=== PATIENT | male | born 1970 | race African-American/Black ===

== ENCOUNTER 2016-12-06 17:11 | Inpatient (IN) | payer OTHER ==
[2016-12-06] MEDS ORDERED: LOPERAMIDE HCL 2 MG CAPSULE PO PRN (17:44)
[2016-12-06] MEDS ORDERED: hydrOXYzine PAMOATE 50 MG CAPSULE (FP) PO PRN (17:44)
[2016-12-06] MEDS ORDERED: P-EPHED 60MG/TRIPROLIDI 2.5MG TABLET PO PRN (17:44)
[2016-12-06] MEDS ORDERED: IBUPROFEN 400 MG TABLET (FP) PO PRN (17:44)
[2016-12-06] MEDS ORDERED: ACETAMINOPHEN 325 MG TABLET (FP) PO PRN (17:44)
[2016-12-06] MEDS ORDERED: NICOTINE POLACRILEX 2 MG GUM BC PRN (17:44)
[2016-12-06] MEDS ORDERED: diazePAM 5 MG TABLET PO ONE (17:44)
[2016-12-06] MEDS ORDERED: MAG HYDROX/AL HYDROX/SIMETH 30 ML UNIT-DOSE CUP PO PRN (17:44)
[2016-12-06] MEDS ORDERED: diphenhydrAMINE HCL 50 MG CAPSULE PO PRN (17:44)
[2016-12-06] MEDS ORDERED: MAGNESIUM HYDROX 2400MG/30ML ORAL SUSPENSION 30 ML CUP PO PRN (17:44)
[2016-12-06] MEDS ORDERED: guaiFENesin/D-METHORPHAN HB 10 ML UNIT-DOSE CUPS PO PRN (17:44)
[2016-12-06] MEDS ORDERED: METHADONE HCL 10 MG TABLET (FOR DETOX USE ONLY) PO ONE ×2 (17:44→23:00)
[2016-12-06] MEDS ORDERED: MENTHOL/PHENOL 1 EACH UD MM PRN (17:44)
[2016-12-06] MEDS ORDERED: MAGNESIUM CITRATE 300 ML BOTTLE PO PRN (17:44)
[2016-12-06 17:50] VITALS: BMI 43.7
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
[2016-12-06] MEDS ORDERED: WARFARIN NA 7.5 MG TABLET (FP) PO SCH (18:00)
[2016-12-06] MEDS: PANTOPRAZOLE 40 MG TABLET (FP) PO SCH (19:06)
[2016-12-06] MEDS: NICOTINE 21 MG/24 HOURS TOPICAL PATCH TD SCH (19:09)
[2016-12-06] MEDS ORDERED: THIAMINE HCL 100 MG TABLET (FP) PO SCH (22:00)
[2016-12-06] MEDS: diazePAM 5 MG TABLET PO SCH (22:50)
[2016-12-06] MEDS: cloNIDine HCL 0.1 MG TABLET PO SCH (22:50)
[2016-12-07] MEDS: diazePAM 5 MG TABLET PO PRN ×3 (00:35→10:38)
[2016-12-07] MEDS ORDERED: METHADONE HCL 10 MG TABLET (FOR DETOX USE ONLY) PO ONE (00:43)
[2016-12-07] MEDS: diazePAM 5 MG TABLET PO SCH (06:27)
[2016-12-07 09:51] LABS: BASOPHIL 0.7 % (0-2.0); EOSINOPHIL 2.5 % (0-4.5); MCH 29.7 pg (25.7-33.7); MCHC 32.6 g/dl (32.0-35.9); MEAN CELL VOLUME 91.2 fl (80-96); MEAN PLT VOLUME 7.8 fl (7.5-11.1); NEUTROPHILS 54.7 % (42.8-82.8); PLATELET COUNT 239 K/MM3 (134-434); RDW 14.5 % (11.9-15.9); WHITE BLOOD COUNT 4.4 K/mm3 (4.0-10.0)
[2016-12-07 09:59] LABS: INR 3.47 (0.82-1.09); PROTHROMBIN TIME (PATIENT) 39.1 SEC (9.98-11.88)
[2016-12-07] MEDS ORDERED: PRENATAL VITAMINS W/ FOLIC ACID TABLET (FP) PO SCH (10:00)
[2016-12-07] MEDS ORDERED: METHADONE HCL 10 MG TABLET (FOR DETOX USE ONLY) PO SCH (10:00)
[2016-12-07 10:20] VITALS: BP 116/76; PULSE 83; TEMP 97.4
[2016-12-07] MEDS: PANTOPRAZOLE 40 MG TABLET (FP) PO SCH (10:38)
[2016-12-07] MEDS: cloNIDine HCL 0.1 MG TABLET PO SCH (10:38)
[2016-12-07] MEDS: NICOTINE 21 MG/24 HOURS TOPICAL PATCH TD SCH (10:39)
--- NOTE | 2016-12-07 10:43 | CONSULT ---
[facility] Psychiatric Consult - Data Date of interview: 12/07/16 Admission source: [facility] Identifying data: Readmission to [facility] for this 46 y/o AA male seeking detox treatment for heroin,cocaine and alcohol dependence.Patient is is single without children,domiciled,unemployed,supported on SSI benefits.This demographic information is extracted from previous records (patient is a hostile ,irritable and marginally cooperative historian). Substance Abuse History: - Smoking Cessation. Smoking history: Current every day smoker. Have you smoked in the past 12 months: Yes. Aproximately how many cigarettes per day: 20. Cigars Per Day: 0. Hx Chewing Tobacco Use: No. Initiated information on smoking cessation: Yes. 'Breaking Loose' booklet given : 12/06/16. - Substance & Tx. History. Hx Alcohol Use: Yes. Hx Substance Use : Yes. Substance Use Type: Alcohol, Cocaine, Heroin. Hx Substance Use Treatment: Yes (Detox). - Substances Abused. Alcohol. Route: Oral. Frequency: Daily. Amount used: Vodka or Cognac 2 pints. Age of first use: 20. Date of Last Use: 12/06/16. Cocaine. Route: Inhalation. Frequency: 3-6 times per week. Amount used: $20.00. Age of first use: 25. Date of Last Use: 12/03/16. Heroin. Route: Inhalation. Frequency: Daily. Amount used: 30 bags. Age of first use: 21. Date of Last Use: 12/06/16. Confirmed by patient. Medical History: History of seizure disorder (withdrawal-related),hypertension, obesity,GERD and tinea versicolor.Noted history of IVC filter placed at [facility] (2009) and DVT in right leg.Information is taken from the medical records due to the patient's reluctance to answer questions. Psychiatric History: " Why do I have to answer these stupid questions ? What does seroquel or SSI or my personal life have to do with all these questions ? ".Mr Gilliam refuses to provide any answer pertinent to his psychiatric history.He only mentions that he takes seroquel 100 mg at bedtime to address insomnia. Physical/Sexual Abuse/Trauma History: No information. Mental Status Exam - Mental Status Exam Alert and Oriented to: Time, Place, Person Cognitive Function: Good Patient Appearance: Unkempt, Disheveled Mood: Angry, Irritable (no apparent reason) Affect: Mood Congruent Patient Behavior: Uncooperative, Belligerent (argumentative), Resitive to Care Speech Pattern: Clear Voice Loudness: Mildly Loud Thought Process: Goal Oriented Thought Disorder: Not Present Hallucinations: Denies Suicidal Ideation: Denies Homicidal Ideation: Denies Insight/Judgement: Poor Sleep: Poorly, Difficulty falling asleep Appetite: Good Gait/Station: Other (noted limp) Psychiatric Findings - Problem List ([place] 1, 2,3) (1) Alcohol dependence with uncomplicated withdrawal Current Visit: Yes Status: Acute (2) Cocaine dependence Current Visit: Yes Status: Acute Qualifiers: Substance use status: uncomplicated Qualified Code(s): F14.20 - Cocaine dependence, uncomplicated (3) Opioid dependence with withdrawal Current Visit: Yes Status: Acute (4) Drug-induced mood disorder Current Visit: Yes Status: Chronic (5) Nicotine dependence Current Visit: Yes Status: Chronic Qualifiers: Nicotine product type: cigarettes Substance use status: uncomplicated Qualified Code(s): F17.210 - Nicotine dependence, cigarettes, uncomplicated (6) Personality disorder, unspecified Current Visit: Yes Status: Chronic (7) DVT (deep venous thrombosis) Current Visit: Yes Status: Chronic Qualifiers: Chronicity: unspecified (8) GERD (gastroesophageal reflux disease) Current Visit: Yes Status: Chronic Qualifiers: Esophagitis presence: without esophagitis Qualified Code(s): K21.9 - Gastro-esophageal reflux disease without esophagitis (9) HTN (hypertension) Current Visit: Yes Status: Chronic Qualifiers: Hypertension type: essential hypertension (10) Obesity Current Visit: Yes Status: Chronic Qualifiers: Obesity type: due to excess calories Obesity severity: morbid Qualified Code(s): E66.01 - Morbid (severe) obesity due to excess calories (11) Tinea versicolor Current Visit: Yes Status: Chronic - Initial Treatment Plan Initial Treatment Plan: Psychoeducation.Detoxification.Seroquel 100 mg po hs at patient's request (not receptive to discussion of side effects/benefits) .Observation.
[2016-12-07 11:11] LABS: ALBUMIN 3.3 g/dl (3.4-5.0); ALK PHOS 67 U/L (45-117); ANION GAP 7 (8-16); BILIRUBIN,TOTAL 0.4 mg/dL (0.2-1.0); CALCIUM 8.7 mg/dL (8.5-10.1); CO2 30 mmol/L (21-32); COCKROFT - GAULT 213.18; CREATININE 0.8 mg/dL (0.7-1.3); GLUCOSE,RANDOM 98 mg/dL (74-106); SGOT/AST 31 U/L (15-37); SGPT/ALT 29 U/L (12-78); TOT PROT 7.3 g/dl (6.4-8.2)
--- NOTE | 2016-12-07 11:45 | EKG ---
Test Reason : Blood Pressure : / mmHG Vent. Rate : 068 BPM Atrial Rate : 068 BPM P-R Int : 146 ms QRS Dur : 092 ms QT Int : 388 ms P-R-T Axes : -14 075 049 degrees QTc Int : 412 ms NORMAL SINUS RHYTHM NORMAL ECG NO PREVIOUS ECGS AVAILABLE Confirmed by CAMILLA MARVIN MD ([id number]) on 12/07/2016 11:45:48 AM Referred By: Confirmed By:CAMILLA MARVIN MD
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
--- NOTE | 2016-12-07 13:40 | DS ---
[facility] Detox Discharge Summary Admission Date: 12/06/16 Discharge Date: 12/07/16 - History Present History: Alcohol Dependence, Cocaine Dependence, Opioid Dependence Pertinent Past History: DVT PE GERD HTN - Physical Exam Results Vital Signs: Vital Signs Temperature 97.4 F L 12/07/16 10:20 Pulse Rate 83 12/07/16 10:20 Respiratory Rate 18 12/07/16 10:20 Blood Pressure 116/76 12/07/16 10:20 O2 Sat by Pulse Oximetry (%) Pertinent Admission Physical Exam Findings: withdrawal sx. Laboratory Last Values WBC 4.4 K/mm3 (4.0-10.0) 12/07/16 07:00 RBC 4.18 M/mm3 (4.00-5.60) 12/07/16 07:00 Hgb 12.4 GM/dL (11.7-16.9) 12/07/16 07:00 Hct 38.1 % (35.4-49) 12/07/16 07:00 MCV 91.2 fl (80-96) 12/07/16 07:00 MCHC 32.6 g/dl (32.0-35.9) 12/07/16 07:00 RDW 14.5 % (11.9-15.9) 12/07/16 07:00 Plt Count 239 K/MM3 (134-434) 12/07/16 07:00 MPV 7.8 fl (7.5-11.1) 12/07/16 07:00 Neutrophils % 54.7 % (42.8-82.8) 12/07/16 07:00 Lymphocytes % 29.8 % (8-40) 12/07/16 07:00 Monocytes % 12.3 % (3.8-10.2) H 12/07/16 07:00 Eosinophils % 2.5 % (0-4.5) 12/07/16 07:00 Basophils % 0.7 % (0-2.0) 12/07/16 07:00 INR 3.47 (0.82-1.09) H D 12/07/16 07:00 Sodium 142 mmol/L (136-145) 12/07/16 07:00 Potassium 4.2 mmol/L (3.5-5.1) 12/07/16 07:00 Chloride 105 mmol/L (98-107) 12/07/16 07:00 Carbon Dioxide 30 mmol/L (21-32) 12/07/16 07:00 Anion Gap 7 (8-16) L 12/07/16 07:00 BUN 19 mg/dL (7-18) H 12/07/16 07:00 Creatinine 0.8 mg/dL (0.7-1.3) 12/07/16 07:00 Creat Clearance w eGFR > 60 (>60) 12/07/16 07:00 Random Glucose 98 mg/dL (74-106) D 12/07/16 07:00 Calcium 8.7 mg/dL (8.5-10.1) 12/07/16 07:00 Total Bilirubin 0.4 mg/dL (0.2-1.0) D 12/07/16 07:00 AST 31 U/L (15-37) D 12/07/16 07:00 ALT 29 U/L (12-78) 12/07/16 07:00 Alkaline Phosphatase 67 U/L (45-117) 12/07/16 07:00 Total Protein 7.3 g/dl (6.4-8.2) 12/07/16 07:00 Albumin 3.3 g/dl (3.4-5.0) L 12/07/16 07:00 RPR Titer Nonreactive (NONREACTIVE) 12/07/16 07:00 labs noted,pt. has INR done weekly at the medical clinic where he gets care. - Medication Discharge Medications: Ambulatory Orders Ammonium Lactate Lotion [Lac-Hydrin 12] 1 applic TP BID PRN #1 bottle 11/27/14 Quetiapine Fumarate [Seroquel -] 100 mg PO HS #30 tablet 05/14/15 Pantoprazole Sodium [Protonix -] 40 mg PO DAILY #30 tablet.ec 05/18/15 Warfarin Na [Coumadin -] 7.5 mg PO HS #30 tablet 05/18/15 Clonidine HCl [Catapres] 0.2 mg PO BID 09/12/15 Zolpidem Tartrate [Ambien] 10 mg PO HS #14 tablet 09/12/15 Gabapentin [Neurontin -] 300 mg PO TID 10/26/15 Quetiapine Fumarate [Seroquel] 100 tab PO HS #30 tablet 10/28/15 Zolpidem Tartrate [Ambien] 10 mg PO HS #14 tablet MDD 10 10/28/15 - Diagnosis (1) Alcohol dependence with uncomplicated withdrawal Current Visit: Yes Status: Acute (2) Cocaine dependence Current Visit: Yes Status: Acute Qualifiers: Substance use status: uncomplicated Qualified Code(s): F14.20 - Cocaine dependence, uncomplicated (3) Opioid dependence with withdrawal Current Visit: Yes Status: Acute (4) DVT (deep venous thrombosis) Current Visit: Yes Status: Chronic Qualifiers: Chronicity: unspecified (5) GERD (gastroesophageal reflux disease) Current Visit: Yes Status: Chronic Qualifiers: Esophagitis presence: without esophagitis Qualified Code(s): K21.9 - Gastro-esophageal reflux disease without esophagitis (6) Obesity Current Visit: Yes Status: Chronic Qualifiers: Obesity type: due to excess calories Obesity severity: morbid Qualified Code(s): E66.01 - Morbid (severe) obesity due to excess calories - AMA Did Patient Leave Against Medical Advice: No
[2016-12-07] MEDS ORDERED: QUEtiapine FUMARATE 100 MG TABLET (FP) PO SCH (22:00)
[2016-12-08] MEDS ORDERED: METHADONE HCL 5 MG TABLET (FOR DETOX USE ONLY) PO SCH (10:00)
[2016-12-08] MEDS ORDERED: diazePAM 5 MG TABLET PO SCH (10:00)
[2016-12-10] MEDS ORDERED: diazePAM 5 MG TABLET PO SCH (10:00)
[2016-12-10] MEDS ORDERED: METHADONE HCL 10 MG TABLET (FOR DETOX USE ONLY) PO SCH (10:00)
[2016-12-11] MEDS ORDERED: METHADONE HCL 5 MG TABLET (FOR DETOX USE ONLY) PO SCH (06:00)
== END 2016-12-07 10:54 | disposition home or self-care (01) | DRG 897 ==
LOC: YASAS 17:11 → Y3N 17:47
PROVIDERS: ADMIT Internal Medicine; ATTEND Internal Medicine
PROC: HZ2ZZZZ Detoxification Services for Substance Abuse Treatment (ICD-10-PCS; principal; 2016-12-07)
DX: F11.23 Opioid dependence with withdrawal (principal); F14.20 Cocaine dependence, uncomplicated; Z68.41 Body mass index [BMI] 40.0-44.9, adult; F10.230 Alcohol dependence with withdrawal, uncomplicated; K21.9 Gastro-esophageal reflux disease without esophagitis; E66.01 Morbid (severe) obesity due to excess calories
CPT/HCPCS: 36415; 80053; 85025; 85610; 86593; 93005; 93010; J0735

== ENCOUNTER 2017-07-05 20:13 | Inpatient (IN) | payer OTHER ==
[2017-07-05 20:32] VITALS: BMI 42.8
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
[2017-07-05] MEDS ORDERED: METHADONE HCL 10 MG TABLET (FOR DETOX USE ONLY) PO ONE ×2 (21:48→23:00)
[2017-07-05] MEDS ORDERED: ACETAMINOPHEN 325 MG TABLET (FP) PO PRN (21:48)
[2017-07-05] MEDS ORDERED: guaiFENesin/D-METHORPHAN HB 10 ML UNIT-DOSE CUPS PO PRN (21:48)
[2017-07-05] MEDS ORDERED: IBUPROFEN 400 MG TABLET (FP) PO PRN (21:48)
[2017-07-05] MEDS ORDERED: MAG HYDROX/AL HYDROX/SIMETH 30 ML UNIT-DOSE CUP PO PRN (21:48)
[2017-07-05] MEDS ORDERED: MENTHOL/PHENOL 1 EACH UD MM PRN (21:48)
[2017-07-05] MEDS ORDERED: P-EPHED 60MG/TRIPROLIDI 2.5MG TABLET PO PRN (21:48)
[2017-07-05] MEDS ORDERED: diazePAM 5 MG TABLET PO ONE (21:48)
[2017-07-05] MEDS ORDERED: MAGNESIUM HYDROX 2400MG/30ML ORAL SUSPENSION 30 ML CUP PO PRN (21:48)
[2017-07-05] MEDS ORDERED: MAGNESIUM CITRATE 300 ML BOTTLE PO PRN (21:48)
[2017-07-05] MEDS ORDERED: LOPERAMIDE HCL 2 MG CAPSULE PO PRN (21:48)
[2017-07-05] MEDS ORDERED: WARFARIN NA 7.5 MG TABLET (FP) PO SCH (22:30)
[2017-07-05] MEDS: THIAMINE HCL 100 MG TABLET (FP) PO SCH (22:42)
[2017-07-05] MEDS: cloNIDine HCL 0.1 MG TABLET PO SCH (22:43)
[2017-07-05 23:02] LABS: URINE APPEARANCE CLEAR; URINE BILIRUBIN NEGATIVE (NEGATIVE); URINE BLOOD NEGATIVE (NEGATIVE); URINE COLOR LTYELLOW; URINE GLUCOSE (UA) NEGATIVE (NEGATIVE); URINE KETONE NEGATIVE (NEGATIVE); URINE LEUK ESTERASE NEGATIVE (NEGATIVE); URINE NITRITE NEGATIVE (NEGATIVE); URINE PROTEIN NEGATIVE (NEGATIVE); URINE UROBILINOGEN NEGATIVE mg/dL (0.2-1.0)
[2017-07-05] MEDS: diazePAM 5 MG TABLET PO SCH (23:57)
[2017-07-06] MEDS ORDERED: METHADONE HCL 10 MG TABLET (FOR DETOX USE ONLY) ONE (00:22)
[2017-07-06] MEDS: diazePAM 5 MG TABLET PO PRN ×3 (02:55→16:57)
[2017-07-06] MEDS: diazePAM 5 MG TABLET PO SCH ×3 (05:40→22:11)
[2017-07-06] MEDS ORDERED: AMMONIUM LACTATE 12% LOTION 225 GM BOTTLE TP PRN (08:57)
--- NOTE | 2017-07-06 09:56 | PN ---
S CIWA - CIWA Score Nausea/Vomitin Muscle Tremors: 3 Anxiety: 3 Agitation: 3 Paroxysmal Sweats: 1-Minimal Palms Moist Orientation: 0-Oriented Tacttile Disturbances: 1-Very Mild Itch/Numbness Auditory Disturbances: 1-Very Mild Visual Disturbances: 0-None Headache: 2-Mild CIWA-Ar Total Score: 17 BHS COWS - Scale Resting Pulse: 1= SD 81-100 Sweatin= Chills/Flushing Restless Observation: 1= Difficult to Sit Still Pupil Size: 1= Pupils >than Normal Bone or Joint Aches: 2= Severe Diffuse Aches Runny Nose/ Eye Tearin= Runny Nose/Eyes GI Upset > 30mins: 2= Nausea/Diarrhea Tremor Observation of Outstretched Hands: 2= Slight Tremor Visible Yawning Observation: 1= 1-2x During Session Anxiety or Irritability: 2=Irritable/Anxious Goose Flesh Skin: 0=Smooth Skin COWS Score: 15 S Progress Note (SOAP) Subjective: ALERT,IRRITABLE,ANXIOUS,INTERRUPTED SLEEP,PAIN IN THE BODY AND BACK,TREMOR Objective: 07/06/17 09:54 Vital Signs Temperature 96.8 F L 07/06/17 05:50 Pulse Rate 82 07/06/17 05:50 Respiratory Rate 18 07/06/17 05:50 Blood Pressure 115/56 07/06/17 05:50 O2 Sat by Pulse Oximetry (%) EKG NSR,NORMAL ECG Laboratory Last Values Urine Color Ltyellow 07/05/17 22:50 Urine Appearance Clear 07/05/17 22:50 Urine pH 6.0 (5.0-8.0) 07/05/17 22:50 Ur Specific [place] 1.015 (1.001-1.035) 07/05/17 22:50 Urine Protein Negative (NEGATIVE) 07/05/17 22:50 Urine Glucose (UA) Negative (NEGATIVE) 07/05/17 22:50 Urine Ketones Negative (NEGATIVE) 07/05/17 22:50 Urine Blood Negative (NEGATIVE) 07/05/17 22:50 Urine Nitrite Negative (NEGATIVE) 07/05/17 22:50 Urine Bilirubin Negative (NEGATIVE) 07/05/17 22:50 Urine Urobilinogen Negative mg/dL (0.2-1.0) 07/05/17 22:50 LABS PENDING Assessment: 07/06/17 09:55 WITHDRAWAL SYMPTOM Plan: CONTINUE DETOX
[2017-07-06] MEDS ORDERED: NICOTINE 14 MG/24 HOURS TOPICAL PATCH TD SCH (10:00)
[2017-07-06] MEDS ORDERED: METHADONE HCL 10 MG TABLET (FOR DETOX USE ONLY) PO SCH (10:00)
[2017-07-06 10:02] LABS: HEMATOCRIT 33.1 % (35.4-49); HEMOGLOBIN 10.7 GM/dL (11.7-16.9); MCH 29.8 pg (25.7-33.7); MCHC 32.3 g/dl (32.0-35.9); MEAN CELL VOLUME 92.3 fl (80-96); MEAN PLT VOLUME 8.1 fl (7.5-11.1); PLATELET COUNT 185 K/MM3 (134-434); RBC 3.59 M/mm3 (4.00-5.60); WHITE BLOOD COUNT 3.8 K/mm3 (4.0-10.0)
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
[2017-07-06 10:13] LABS: CHLORIDE 101 mmol/L (98-107); POTASSIUM 4.3 mmol/L (3.5-5.1); SODIUM 140 mmol/L (136-145)
[2017-07-06] MEDS: cloNIDine HCL 0.1 MG TABLET PO SCH ×2 (10:18→22:11)
[2017-07-06] MEDS: CYCLOBENZAPRINE HCL 10 MG TABLET (FP) PO PRN ×2 (10:18→22:11)
[2017-07-06] MEDS: PRENATAL VITAMINS W/ FOLIC ACID TABLET (FP) PO SCH (10:18)
[2017-07-06 10:19] LABS: INR 3.12 (0.82-1.09); PROTHROMBIN TIME (PATIENT) 35.2 SEC (9.98-11.88)
[2017-07-06] MEDS: NICOTINE 21 MG/24 HOURS TOPICAL PATCH TD SCH (10:19)
[2017-07-06 10:26] LABS: ALK PHOS 52 U/L (45-117); ANION GAP 5 (8-16); BILIRUBIN,TOTAL 0.2 mg/dL (0.2-1.0); BLOOD UREA NITROGEN 21 mg/dL (7-18); CALCIUM 8.2 mg/dL (8.5-10.1); CO2 34 mmol/L (21-32); CREATININE 0.8 mg/dL (0.7-1.3); GLUCOSE,RANDOM 95 mg/dL (74-106); SGOT/AST 37 U/L (15-37); SGPT/ALT 43 U/L (12-78); TOT PROT 6.2 g/dl (6.4-8.2)
--- NOTE | 2017-07-06 17:42 | PN ---
S Progress Note Note: tonight coumadin of 7.5mg on hold. Pt INR is 3.12; INR blood work ordered for tomorrow AM. coumadin ordered for tomorrow night but will hold if INR is still too high.
[2017-07-06] MEDS ORDERED: QUEtiapine FUMARATE 100 MG TABLET (FP) PO SCH (22:00)
[2017-07-06] MEDS: THIAMINE HCL 100 MG TABLET (FP) PO SCH (22:11)
[2017-07-07] MEDS: diazePAM 5 MG TABLET PO PRN ×2 (00:57→06:38)
[2017-07-07] MEDS: CYCLOBENZAPRINE HCL 10 MG TABLET (FP) PO PRN (06:38)
[2017-07-07] MEDS: NICOTINE POLACRILEX 2 MG GUM BUC PRN ×2 (06:38→10:40)
[2017-07-07 09:45] VITALS: BP 136/74; PULSE 103; TEMP 98.2
[2017-07-07 10:00] LABS: INR 2.64 (0.82-1.09); PROTHROMBIN TIME (PATIENT) 29.8 SEC (9.98-11.88)
[2017-07-07] MEDS ORDERED: diazePAM 5 MG TABLET PO SCH (10:00)
[2017-07-07] MEDS ORDERED: METHADONE HCL 5 MG TABLET (FOR DETOX USE ONLY) PO SCH (10:00)
--- NOTE | 2017-07-07 10:12 | PN ---
S CIWA - CIWA Score Nausea/Vomitin Muscle Tremors: 3 Anxiety: 3 Agitation: 2 Paroxysmal Sweats: 1-Minimal Palms Moist Orientation: 0-Oriented Tacttile Disturbances: 1-Very Mild Itch/Numbness Auditory Disturbances: 1-Very Mild Visual Disturbances: 0-None Headache: 2-Mild CIWA-Ar Total Score: 16 BHS COWS - Scale Resting Pulse: 2= [place] 101-120 Sweatin= Chills/Flushing Restless Observation: 3= Extraneous Movement Pupil Size: 1= Pupils >than Normal Bone or Joint Aches: 2= Severe Diffuse Aches Runny Nose/ Eye Tearin= Runny Nose/Eyes GI Upset > 30mins: 2= Nausea/Diarrhea Tremor Observation of Outstretched Hands: 2= Slight Tremor Visible Yawning Observation: 0= None Anxiety or Irritability: 2=Irritable/Anxious Goose Flesh Skin: 0=Smooth Skin COWS Score: 17 S Progress Note (SOAP) Subjective: ALERT,IRRITABLE,ANXIOUS,INTERRUPTED SLEEP,PAIN IN THE BODY AND BACK,TREMOR Objective: 07/07/17 10:11 Vital Signs Temperature 98.2 F 07/07/17 09:44 Pulse Rate 103 H 07/07/17 09:44 Respiratory Rate 18 07/07/17 09:44 Blood Pressure 136/74 07/07/17 09:44 O2 Sat by Pulse Oximetry (%) 07/07/17 10:12 REPEAT INR PENDING Assessment: 07/07/17 10:11 WITHDRAWAL SYMPTOM Plan: CONTINUE DETOX
[2017-07-07] MEDS: cloNIDine HCL 0.1 MG TABLET PO SCH (10:37)
[2017-07-07] MEDS: NICOTINE 21 MG/24 HOURS TOPICAL PATCH TD SCH (10:37)
[2017-07-07] MEDS: PRENATAL VITAMINS W/ FOLIC ACID TABLET (FP) PO SCH (10:37)
--- NOTE | 2017-07-07 10:50 | PN ---
Jodee Progress Note Note: PATIENT DID NOT WANT TO COMPLETE TREATMENT,SEEN BY COUNSELOR,SIGNED RELEASE AMA, Abnormal Lab Results 07/07/17 07:30 PT with INR 29.80 H INR 2.64 H PATIENT WILL FOLLOW UP WITH PMD FOR MEDIACL PROBLEM,HAS ALL MEDICATIONS AT HOME
--- NOTE | 2017-07-07 10:55 | DS ---
[facility] Detox Discharge Summary Admission Date: 07/05/17 Discharge Date: 07/07/17 - History Present History: Alcohol Dependence, Opioid Dependence, Sedative Dependence Additional Comments: PATIENT DID NOT WANT TO COMPLETE TREATMENT,SEEN BY COUNSELOR,SIGNED RELEASE AMA, FOLLOW UP WITH PMR DR Dav SOLIS Pertinent Past History: HISTORY OF DVT RIGHT LEG GERD HYPERTENSION HISTORY OF PULMONARY EMBOLISM ANXIETY DISORDER - Physical Exam Results Vital Signs: Vital Signs Temperature 98.2 F 07/07/17 09:44 Pulse Rate 103 H 07/07/17 09:44 Respiratory Rate 18 07/07/17 09:44 Blood Pressure 136/74 07/07/17 09:44 O2 Sat by Pulse Oximetry (%) Pertinent Admission Physical Exam Findings: WITHDRAWAL SYMPTOM - Medication Discharge Medications: Ambulatory Orders Quetiapine Fumarate [Seroquel -] 100 mg PO HS #30 tablet 05/14/15 Pantoprazole Sodium [Protonix -] 40 mg PO DAILY #30 tablet.ec 05/18/15 Warfarin Na [Coumadin -] 7.5 mg PO HS #30 tablet 05/18/15 Clonidine HCl [Catapres] 0.2 mg PO BID 09/12/15 Zolpidem Tartrate [Ambien] 10 mg PO HS #14 tablet 09/12/15 Gabapentin [Neurontin -] 300 mg PO TID 10/26/15 Quetiapine Fumarate [Seroquel] 100 mg PO HS #30 tablet 07/06/17 - Diagnosis (1) Opioid dependence with withdrawal Current Visit: Yes Status: Acute (2) Alcohol dependence with uncomplicated withdrawal Current Visit: Yes Status: Acute (3) Anticoagulant long-term use Current Visit: Yes Status: Chronic (4) Benzodiazepine dependence Current Visit: Yes Status: Acute (5) DVT (deep venous thrombosis) Current Visit: Yes Status: Chronic Qualifiers: Chronicity: unspecified (6) GERD (gastroesophageal reflux disease) Current Visit: Yes Status: Chronic Qualifiers: Esophagitis presence: without esophagitis Qualified Code(s): K21.9 - Gastro -esophageal reflux disease without esophagitis (7) HTN (hypertension) Current Visit: Yes Status: Chronic Qualifiers: Hypertension type: essential hypertension (8) Nicotine dependence Current Visit: Yes Status: Chronic Qualifiers: Nicotine product type: cigarettes Substance use status: uncomplicated Qualified Code(s): F17.210 - Nicotine dependence, cigarettes, uncomplicated (9) Cocaine dependence Current Visit: Yes Status: Acute Qualifiers: Substance use status: uncomplicated Qualified Code(s): F14.20 - Cocaine dependence, uncomplicated (10) History of pulmonary embolism Current Visit: Yes Status: Acute - AMA Did Patient Leave Against Medical Advice: Yes
--- NOTE | 2017-07-07 13:32 | EKG ---
Test Reason : Blood Pressure : / mmHG Vent. Rate : 084 BPM Atrial Rate : 084 BPM P-R Int : 164 ms QRS Dur : 082 ms QT Int : 350 ms P-R-T Axes : 067 064 038 degrees QTc Int : 413 ms NORMAL SINUS RHYTHM NORMAL ECG WHEN COMPARED WITH ECG OF 06-DEC-2016 18:22, NO SIGNIFICANT CHANGE WAS FOUND Confirmed by THERON ERIC MD ([id number]) on 07/07/2017 1:32:48 PM Referred By: Confirmed By:THERON ERIC MD
[2017-07-07] MEDS ORDERED: WARFARIN NA 7.5 MG TABLET (FP) PO ONE (18:00)
[2017-07-09] MEDS ORDERED: METHADONE HCL 10 MG TABLET (FOR DETOX USE ONLY) PO SCH (10:00)
[2017-07-09] MEDS ORDERED: diazePAM 5 MG TABLET PO SCH (10:00)
[2017-07-10] MEDS ORDERED: METHADONE HCL 5 MG TABLET (FOR DETOX USE ONLY) PO SCH (06:00)
== END 2017-07-07 11:08 | disposition left against medical advice (07) | DRG 894 ==
LOC: YASAS 20:13 → Y6N 21:57
PROVIDERS: ADMIT Internal Medicine; ATTEND Internal Medicine
PROC: HZ2ZZZZ Detoxification Services for Substance Abuse Treatment (ICD-10-PCS; principal; 2017-07-05)
DX: F19.230 Other psychoactive substance dependence with withdrawal, uncomplicated (principal); F14.20 Cocaine dependence, uncomplicated; F31.30 Bipolar disorder, current episode depressed, mild or moderate severity, unspecified; I82.509 Chronic embolism and thrombosis of unspecified deep veins of unspecified lower extremity; F11.23 Opioid dependence with withdrawal; F13.230 Sedative, hypnotic or anxiolytic dependence with withdrawal, uncomplicated; F10.230 Alcohol dependence with withdrawal, uncomplicated; F17.210 Nicotine dependence, cigarettes, uncomplicated; F16.10 Hallucinogen abuse, uncomplicated; F19.24 Other psychoactive substance dependence with psychoactive substance-induced mood disorder; F41.9 Anxiety disorder, unspecified; I10 Essential (primary) hypertension; K21.9 Gastro-esophageal reflux disease without esophagitis; Z79.01 Long term (current) use of anticoagulants; Z86.711 Personal history of pulmonary embolism; Z86.69 Personal history of other diseases of the nervous system and sense organs; Z88.8 Allergy status to other drugs, medicaments and biological substances
CPT/HCPCS: 36415; 71046-TC; 80053; 81003; 85027; 85610; 86593; 93005; 93010

== ENCOUNTER 2017-10-08 23:27 | Inpatient (IN) | payer OTHER ==
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
[2017-10-08 23:41] VITALS: BMI 39.9
[2017-10-09] MEDS ORDERED: ACETAMINOPHEN 325 MG TABLET (FP) PO PRN (00:04)
[2017-10-09] MEDS ORDERED: MAGNESIUM CITRATE 300 ML BOTTLE PO PRN (00:04)
[2017-10-09] MEDS ORDERED: METHADONE HCL 10 MG TABLET (FOR DETOX USE ONLY) PO ONE ×3 (00:04→23:00)
[2017-10-09] MEDS ORDERED: MAGNESIUM HYDROX 2400MG/30ML ORAL SUSPENSION 30 ML CUP PO PRN (00:04)
[2017-10-09] MEDS ORDERED: LOPERAMIDE HCL 2 MG CAPSULE PO PRN (00:04)
[2017-10-09] MEDS ORDERED: NICOTINE POLACRILEX 4 MG GUM BC PRN (00:04)
[2017-10-09] MEDS ORDERED: guaiFENesin/D-METHORPHAN HB 10 ML UNIT-DOSE CUPS PO PRN (00:04)
[2017-10-09] MEDS ORDERED: MAG HYDROX/AL HYDROX/SIMETH 30 ML UNIT-DOSE CUP PO PRN (00:04)
[2017-10-09] MEDS ORDERED: hydrOXYzine PAMOATE 50 MG CAPSULE (FP) PO PRN (00:04)
[2017-10-09] MEDS ORDERED: P-EPHED 60MG/TRIPROLIDI 2.5MG TABLET PO PRN (00:04)
[2017-10-09] MEDS ORDERED: diazePAM 5 MG TABLET PO ONE (00:04)
[2017-10-09] MEDS ORDERED: IBUPROFEN 400 MG TABLET (FP) PO PRN (00:04)
[2017-10-09] MEDS ORDERED: MENTHOL/PHENOL 1 EACH UD MM PRN (00:04)
[2017-10-09] MEDS: diazePAM 5 MG TABLET PO SCH ×3 (05:41→22:40)
[2017-10-09] MEDS: diazePAM 5 MG TABLET PO PRN ×3 (07:20→16:58)
[2017-10-09] MEDS: cloNIDine HCL 0.1 MG TABLET PO SCH ×2 (10:10→22:40)
[2017-10-09] MEDS: PRENATAL VITAMINS W/ FOLIC ACID TABLET (FP) PO SCH (10:10)
[2017-10-09] MEDS: CYCLOBENZAPRINE HCL 10 MG TABLET (FP) PO PRN ×2 (10:10→22:40)
[2017-10-09 11:17] LABS: URINE APPEARANCE CLEAR; URINE BILIRUBIN NEGATIVE (<2.0 mg/dL); URINE BLOOD NEGATIVE (NEGATIVE); URINE COLOR YELLOW; URINE GLUCOSE (UA) NEGATIVE (NEGATIVE); URINE KETONE NEGATIVE (NEGATIVE); URINE LEUK ESTERASE NEGATIVE (NEGATIVE); URINE NITRITE NEGATIVE (NEGATIVE); URINE PROTEIN NEGATIVE (NEGATIVE); URINE UROBILINOGEN NEGATIVE mg/dL (0.2-1.0)
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
[2017-10-09 11:32] LABS: ALBUMIN 3.4 g/dl (3.4-5.0); ANION GAP 7 (8-16); BLOOD UREA NITROGEN 25 mg/dL (7-18); CALCIUM 7.9 mg/dL (8.5-10.1); CHLORIDE 108 mmol/L (98-107); CO2 27 mmol/L (21-32); GLUCOSE,RANDOM 105 mg/dL (74-106); POTASSIUM 3.8 mmol/L (3.5-5.1); SGOT/AST 77 U/L (15-37); SODIUM 142 mmol/L (136-145)
[2017-10-09 11:34] LABS: BASO % 0.5 % (0-2.0); EOS % 2.3 % (0-4.5); HEMATOCRIT 33.9 % (35.4-49); HEMOGLOBIN 11.2 GM/dL (11.7-16.9); LYMPH % 30.9 % (8-40); MCHC 32.9 g/dl (32.0-35.9); MEAN CELL VOLUME 91.2 fl (80-96); MEAN PLT VOLUME 7.8 fl (7.5-11.1); MONO % 13.1 % (3.8-10.2); NEUT % 53.2 % (42.8-82.8); PLATELET COUNT 255 K/MM3 (134-434); RBC 3.72 M/mm3 (4.00-5.60); RDW 15.2 % (11.9-15.9); WHITE BLOOD COUNT 5.5 K/mm3 (4.0-10.0)
[2017-10-09 11:38] LABS: BILIRUBIN,TOTAL 0.1 mg/dL (0.2-1.0); SGPT/ALT 42 U/L (12-78); TOT PROT 7.4 g/dl (6.4-8.2)
[2017-10-09 11:40] LABS: INR 2.24 (0.82-1.09); PROTHROMBIN TIME (PATIENT) 25.3 SEC (9.98-11.88)
[2017-10-09 12:14] LABS: ALK PHOS 63 U/L (45-117)
--- NOTE | 2017-10-09 13:16 | PN ---
[facility] CIWA - CIWA Score Nausea/Vomitin-No Nausea/No Vomiting Muscle Tremors: None Anxiety: 4-Mod. Anxious/Guarded Agitation: 5 Paroxysmal Sweats: 3 Orientation: 0-Oriented Tacttile Disturbances: 2-Mild Itch/Numbness/Burn Auditory Disturbances: 0-None Visual Disturbances: 3-Moderate Sensitivity Headache: 0-None Present CIWA-Ar Total Score: 17 BHS COWS - Scale Resting Pulse: 1= DE 81-100 Sweatin= Chills/Flushing Restless Observation: 1= Difficult to Sit Still Pupil Size: 0= Normal to Room Light Bone or Joint Aches: 2= Severe Diffuse Aches Runny Nose/ Eye Tearin= None GI Upset > 30mins: 2= Nausea/Diarrhea Tremor Observation of Outstretched Hands: 0= None Yawning Observation: 1= 1-2x During Session Anxiety or Irritability: 2=Irritable/Anxious Goose Flesh Skin: 3=Piloerection COWS Score: 13 BHS Progress Note (SOAP) Subjective: Anxious, Body Aches, Diarrhea, Sweating. Objective: PATIENT A & O X 3, OBSERVED AMBULATING ON UNIT. NO ACUTE DISTRESS. 10/09/17 13:14 Vital Signs Temperature 98.1 F 10/09/17 12:58 Pulse Rate 96 H 10/09/17 12:58 Respiratory Rate 18 10/09/17 12:58 Blood Pressure 114/69 10/09/17 12:58 O2 Sat by Pulse Oximetry (%) Laboratory Tests 10/09/17 10/09/17 10/09/17 08:00 08:00 08:00 WBC RBC Hgb Hct MCV MCH MCHC RDW Plt Count MPV Neutrophils % Lymphocytes % Monocytes % Eosinophils % Basophils % PT with INR 25.30 H INR 2.24 H Sodium 142 Potassium 3.8 Chloride 108 H Carbon Dioxide 27 D Anion Gap 7 L BUN 25 H Creatinine 1.0 D Creat Clearance w eGFR > 60 Random Glucose 105 Calcium 7.9 L Total Bilirubin 0.1 L D AST 77 H D ALT 42 Alkaline Phosphatase 63 D Total Protein 7.4 Albumin 3.4 Urine Color Yellow Urine Appearance Clear Urine pH 5.0 Ur Specific [place] 1.024 Urine Protein Negative Urine Glucose (UA) Negative Urine Ketones Negative Urine Blood Negative Urine Nitrite Negative Urine Bilirubin Negative Urine Urobilinogen Negative Ur Leukocyte Esterase Negative 10/09/17 08:50 WBC 5.5 D RBC 3.72 L Hgb 11.2 L Hct 33.9 L MCV 91.2 MCH 30.0 MCHC 32.9 RDW 15.2 Plt Count 255 D MPV 7.8 Neutrophils % 53.2 Lymphocytes % 30.9 Monocytes % 13.1 H Eosinophils % 2.3 Basophils % 0.5 PT with INR INR Sodium Potassium Chloride Carbon Dioxide Anion Gap BUN Creatinine Creat Clearance w eGFR Random Glucose Calcium Total Bilirubin AST ALT Alkaline Phosphatase Total Protein Albumin Urine Color Urine Appearance Urine pH Ur Specific [place] Urine Protein Urine Glucose (UA) Urine Ketones Urine Blood Urine Nitrite Urine Bilirubin Urine Urobilinogen Ur Leukocyte Esterase LABS NOTED. RPR RESULT PENDING. 10/09/17 13:14 Assessment: 10/09/17 13:14 WITHDRAWAL SYMPTOMS. Plan: CONTINUE DETOX. INCREASE DAILY PO FLUID INTAKE. REPEAT AST ON 10/11/2017 FOR ELEVATED ADMISSION LEVEL.
[2017-10-09] MEDS: TOLNAFTATE 1% CREAM 15 GM TUBE TP SCH ×2 (13:49→22:40)
[2017-10-09] MEDS: AMMONIUM LACTATE 12% LOTION 225 GM BOTTLE TP SCH ×2 (13:50→22:41)
[2017-10-09] MEDS: WARFARIN NA 2 MG TABLET (UD) PO SCH (18:22)
[2017-10-09] MEDS ORDERED: MELATONIN 5 MG TABLETS PO PRN (22:00)
[2017-10-09] MEDS: THIAMINE HCL 100 MG TABLET (FP) PO SCH (22:40)
[2017-10-09] MEDS: ZOLPIDEM TARTRATE 5 MG TABLET PO PRN (23:25)
[2017-10-09] MEDS: QUEtiapine FUMARATE 100 MG TABLET (FP) PO SCH (23:25)
[2017-10-10] MEDS: diazePAM 5 MG TABLET PO PRN ×4 (01:14→17:45)
[2017-10-10] MEDS: diazePAM 5 MG TABLET PO SCH ×3 (05:45→22:15)
[2017-10-10] MEDS: CYCLOBENZAPRINE HCL 10 MG TABLET (FP) PO PRN ×2 (07:29→20:50)
--- NOTE | 2017-10-10 09:22 | EKG ---
Test Reason : Blood Pressure : / mmHG Vent. Rate : 101 BPM Atrial Rate : 101 BPM P-R Int : 142 ms QRS Dur : 092 ms QT Int : 350 ms P-R-T Axes : 070 063 036 degrees QTc Int : 453 ms SINUS TACHYCARDIA OTHERWISE NORMAL ECG WHEN COMPARED WITH ECG OF 05-JUL-2017 22:53, NONSPECIFIC T WAVE ABNORMALITY NOW EVIDENT IN ANTERIOR LEADS Confirmed by RIVAS WEISS, ALBARO ([id number]) on 10/10/2017 9:22:36 AM Referred By: John Lyle Confirmed By:ALBARO HATHAWAY MD
[2017-10-10] MEDS ORDERED: METHADONE HCL 10 MG TABLET (FOR DETOX USE ONLY) PO SCH (10:00)
[2017-10-10] MEDS: TOLNAFTATE 1% CREAM 15 GM TUBE TP SCH ×2 (10:21→22:15)
[2017-10-10] MEDS: AMMONIUM LACTATE 12% LOTION 225 GM BOTTLE TP SCH ×2 (10:21→22:15)
[2017-10-10] MEDS: cloNIDine HCL 0.1 MG TABLET PO SCH ×2 (10:22→22:15)
[2017-10-10] MEDS: PRENATAL VITAMINS W/ FOLIC ACID TABLET (FP) PO SCH (10:22)
--- NOTE | 2017-10-10 14:38 | PN ---
[facility] CIWA - CIWA Score Nausea/Vomitin Muscle Tremors: 4-Moderate,w/Arms Extend Anxiety: 3 Agitation: 3 Paroxysmal Sweats: 3 Orientation: 0-Oriented Tacttile Disturbances: 1-Very Mild Itch/Numbness Auditory Disturbances: 0-None Visual Disturbances: 0-None Headache: 1-Very Mild CIWA-Ar Total Score: 18 BHS COWS - Scale Resting Pulse: 1= [place] 81-100 Sweatin= Chills/Flushing Restless Observation: 3= Extraneous Movement Pupil Size: 0= Normal to Room Light Bone or Joint Aches: 2= Severe Diffuse Aches Runny Nose/ Eye Tearin= Runny Nose/Eyes GI Upset > 30mins: 2= Nausea/Diarrhea Tremor Observation of Outstretched Hands: 2= Slight Tremor Visible Yawning Observation: 1= 1-2x During Session Anxiety or Irritability: 2=Irritable/Anxious Goose Flesh Skin: 0=Smooth Skin COWS Score: 16 S Progress Note (SOAP) Subjective: Tremor, chills, diarrhea Objective: 10/10/17 14:35 Last Vital Signs Temp Pulse Resp BP Pulse Ox 98.0 F 97 H 20 116/71 10/10/17 13:50 10/10/17 13:50 10/10/17 13:50 10/10/17 13:50 Laboratory Tests 10/09/17 10/09/17 10/09/17 08:00 08:00 08:00 WBC RBC Hgb Hct MCV MCH MCHC RDW Plt Count MPV Neutrophils % Lymphocytes % Monocytes % Eosinophils % Basophils % PT with INR 25.30 H INR 2.24 H Sodium 142 Potassium 3.8 Chloride 108 H Carbon Dioxide 27 D Anion Gap 7 L BUN 25 H Creatinine 1.0 D Creat Clearance w eGFR > 60 Random Glucose 105 Calcium 7.9 L Total Bilirubin 0.1 L D AST 77 H D ALT 42 Alkaline Phosphatase 63 D Total Protein 7.4 Albumin 3.4 Urine Color Urine Appearance Urine pH Ur Specific [place] Urine Protein Urine Glucose (UA) Urine Ketones Urine Blood Urine Nitrite Urine Bilirubin Urine Urobilinogen Ur Leukocyte Esterase RPR Titer Nonreactive 10/09/17 10/09/17 08:00 08:50 WBC 5.5 D RBC 3.72 L Hgb 11.2 L Hct 33.9 L MCV 91.2 MCH 30.0 MCHC 32.9 RDW 15.2 Plt Count 255 D MPV 7.8 Neutrophils % 53.2 Lymphocytes % 30.9 Monocytes % 13.1 H Eosinophils % 2.3 Basophils % 0.5 PT with INR INR Sodium Potassium Chloride Carbon Dioxide Anion Gap BUN Creatinine Creat Clearance w eGFR Random Glucose Calcium Total Bilirubin AST ALT Alkaline Phosphatase Total Protein Albumin Urine Color Yellow Urine Appearance Clear Urine pH 5.0 Ur Specific [place] 1.024 Urine Protein Negative Urine Glucose (UA) Negative Urine Ketones Negative Urine Blood Negative Urine Nitrite Negative Urine Bilirubin Negative Urine Urobilinogen Negative Ur Leukocyte Esterase Negative RPR Titer Labs noted Assessment: 10/10/17 14:37 Withdrawal symptoms Plan: Continue detox Encouraged to drink lots of water 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
[2017-10-10] MEDS: WARFARIN NA 2 MG TABLET (UD) PO SCH (17:45)
[2017-10-10] MEDS: THIAMINE HCL 100 MG TABLET (FP) PO SCH (22:15)
[2017-10-10] MEDS: ZOLPIDEM TARTRATE 5 MG TABLET PO PRN (23:27)
[2017-10-10] MEDS: QUEtiapine FUMARATE 100 MG TABLET (FP) PO SCH (23:28)
[2017-10-11] MEDS: diazePAM 5 MG TABLET PO PRN ×6 (00:42→20:46)
[2017-10-11] MEDS: CYCLOBENZAPRINE HCL 10 MG TABLET (FP) PO PRN ×3 (04:44→22:07)
[2017-10-11] MEDS: PRENATAL VITAMINS W/ FOLIC ACID TABLET (FP) PO SCH (10:15)
[2017-10-11] MEDS: TOLNAFTATE 1% CREAM 15 GM TUBE TP SCH ×2 (10:15→22:14)
[2017-10-11] MEDS: cloNIDine HCL 0.1 MG TABLET PO SCH ×2 (10:15→22:04)
[2017-10-11] MEDS: AMMONIUM LACTATE 12% LOTION 225 GM BOTTLE TP SCH ×2 (10:15→22:03)
[2017-10-11] MEDS: METHADONE HCL 5 MG TABLET (FOR DETOX USE ONLY) PO SCH (10:15)
[2017-10-11] MEDS: diazePAM 5 MG TABLET PO SCH ×2 (10:51→22:04)
--- NOTE | 2017-10-11 12:27 | PN ---
BHS Progress Note (SOAP) Subjective: Shakes sweats abd cramp Objective: 10/11/17 12:26 A & O x 3 Gait steady Vital Signs Temperature 96.0 F L 10/11/17 09:12 Pulse Rate 90 10/11/17 09:12 Respiratory Rate 20 10/11/17 09:12 Blood Pressure 133/73 10/11/17 09:12 O2 Sat by Pulse Oximetry (%) Assessment: 10/11/17 12:26 Withdrawal sx Plan: continue detox
[2017-10-11 12:45] LABS: INR 2.29 (0.82-1.09); PROTHROMBIN TIME (PATIENT) 25.9 SEC (9.98-11.88)
[2017-10-11] MEDS: WARFARIN NA 2 MG TABLET (UD) PO SCH (17:30)
[2017-10-11] MEDS: THIAMINE HCL 100 MG TABLET (FP) PO SCH (22:04)
[2017-10-11] MEDS: QUEtiapine FUMARATE 100 MG TABLET (FP) PO SCH (22:14)
[2017-10-11] MEDS: ZOLPIDEM TARTRATE 5 MG TABLET PO PRN (22:15)
[2017-10-12] MEDS: CYCLOBENZAPRINE HCL 10 MG TABLET (FP) PO PRN ×3 (06:21→22:44)
[2017-10-12] MEDS: cloNIDine HCL 0.1 MG TABLET PO SCH ×2 (09:13→22:43)
[2017-10-12] MEDS: PRENATAL VITAMINS W/ FOLIC ACID TABLET (FP) PO SCH (09:13)
[2017-10-12] MEDS: METHADONE HCL 5 MG TABLET (FOR DETOX USE ONLY) PO SCH (09:14)
[2017-10-12] MEDS: AMMONIUM LACTATE 12% LOTION 225 GM BOTTLE TP SCH ×2 (09:14→23:20)
[2017-10-12] MEDS: diazePAM 5 MG TABLET PO SCH ×2 (09:14→22:43)
[2017-10-12] MEDS: TOLNAFTATE 1% CREAM 15 GM TUBE TP SCH ×2 (09:15→23:20)
--- NOTE | 2017-10-12 11:20 | PN ---
S Progress Note (SOAP) Subjective: Interrupted Sleep, Anxious, Body Aches. Patient reporting swelling in bilateral ankles and feet since yesterday. Patient reports mild discomfort in right ankle. Patient denies any history of IV drug injection in legs, but reports history of lower leg swelling while detoxing in past. Objective: PATIENT A & O X 3, OBSERVED AMBULATING ON UNIT. NO ACUTE DISTRESS. SWELLING NOTED IN BILATERAL ANKLES AND FEET. NO ERYTHEMA, WOUNDS, OR DISCHARGE NOTED. 10/12/17 11:15 Vital Signs Temperature 96.5 F L 10/12/17 09:23 Pulse Rate 99 H 10/12/17 09:23 Respiratory Rate 18 10/12/17 09:23 Blood Pressure 136/85 10/12/17 09:23 O2 Sat by Pulse Oximetry (%) Laboratory Tests 10/09/17 10/09/17 10/09/17 08:00 08:00 08:00 WBC RBC Hgb Hct MCV MCH MCHC RDW Plt Count MPV Neutrophils % Lymphocytes % Monocytes % Eosinophils % Basophils % PT with INR 25.30 H INR 2.24 H Sodium 142 Potassium 3.8 Chloride 108 H Carbon Dioxide 27 D Anion Gap 7 L BUN 25 H Creatinine 1.0 D Creat Clearance w eGFR > 60 Random Glucose 105 Calcium 7.9 L Total Bilirubin 0.1 L D AST 77 H D ALT 42 Alkaline Phosphatase 63 D Total Protein 7.4 Albumin 3.4 Urine Color Urine Appearance Urine pH Ur Specific [place] Urine Protein Urine Glucose (UA) Urine Ketones Urine Blood Urine Nitrite Urine Bilirubin Urine Urobilinogen Ur Leukocyte Esterase RPR Titer Nonreactive 10/09/17 10/09/17 10/11/17 08:00 08:50 06:00 WBC 5.5 D RBC 3.72 L Hgb 11.2 L Hct 33.9 L MCV 91.2 MCH 30.0 MCHC 32.9 RDW 15.2 Plt Count 255 D MPV 7.8 Neutrophils % 53.2 Lymphocytes % 30.9 Monocytes % 13.1 H Eosinophils % 2.3 Basophils % 0.5 PT with INR 25.90 H INR 2.29 H Sodium Potassium Chloride Carbon Dioxide Anion Gap BUN Creatinine Creat Clearance w eGFR Random Glucose Calcium Total Bilirubin AST ALT Alkaline Phosphatase Total Protein Albumin Urine Color Yellow Urine Appearance Clear Urine pH 5.0 Ur Specific [place] 1.024 Urine Protein Negative Urine Glucose (UA) Negative Urine Ketones Negative Urine Blood Negative Urine Nitrite Negative Urine Bilirubin Negative Urine Urobilinogen Negative Ur Leukocyte Esterase Negative RPR Titer 10/11/17 07:00 WBC RBC Hgb Hct MCV MCH MCHC RDW Plt Count MPV Neutrophils % Lymphocytes % Monocytes % Eosinophils % Basophils % PT with INR INR Sodium Potassium Chloride Carbon Dioxide Anion Gap BUN Creatinine Creat Clearance w eGFR Random Glucose Calcium Total Bilirubin AST 37 D ALT Alkaline Phosphatase Total Protein Albumin Urine Color Urine Appearance Urine pH Ur Specific [place] Urine Protein Urine Glucose (UA) Urine Ketones Urine Blood Urine Nitrite Urine Bilirubin Urine Urobilinogen Ur Leukocyte Esterase RPR Titer LABS NOTED. 10/12/17 11:22 Assessment: 10/12/17 11:15 WITHDRAWAL SYMPTOMS. Plan: CONTINUE DETOX. LASIX, 40 MEQ PO X 1 NOW, THEN BID STARTING TOMORROW. K-DUR, 20 MEQ PO BID TO PREVENT HYPOKALEMIA WHILE ON LASIX.
[2017-10-12] MEDS ORDERED: FUROSEMIDE 40 MG TABLET (FP) PO ONE (11:36)
[2017-10-12] MEDS: POTASSIUM CHLORIDE TABS 20 MEQ TABLET.ER (FP) PO SCH (17:48)
[2017-10-12] MEDS: WARFARIN NA 2 MG TABLET (UD) PO SCH (17:48)
[2017-10-12] MEDS: THIAMINE HCL 100 MG TABLET (FP) PO SCH (22:42)
[2017-10-12] MEDS: QUEtiapine FUMARATE 100 MG TABLET (FP) PO SCH (22:43)
[2017-10-12] MEDS: ZOLPIDEM TARTRATE 5 MG TABLET PO PRN (22:54)
[2017-10-13] MEDS ORDERED: FUROSEMIDE 20 MG TABLET (FP) PO ONE (06:00)
[2017-10-13] MEDS: FUROSEMIDE 20 MG TABLET (FP) PO SCH ×2 (06:21→13:15)
[2017-10-13] MEDS ORDERED: diazePAM 5 MG TABLET PO SCH (10:00)
[2017-10-13] MEDS ORDERED: METHADONE HCL 10 MG TABLET (FOR DETOX USE ONLY) PO SCH (10:00)
[2017-10-13] MEDS: POTASSIUM CHLORIDE TABS 20 MEQ TABLET.ER (FP) PO SCH ×2 (10:35→17:35)
[2017-10-13] MEDS: cloNIDine HCL 0.1 MG TABLET PO SCH ×2 (10:35→22:02)
[2017-10-13] MEDS: PRENATAL VITAMINS W/ FOLIC ACID TABLET (FP) PO SCH (10:36)
[2017-10-13] MEDS: AMMONIUM LACTATE 12% LOTION 225 GM BOTTLE TP SCH ×2 (10:36→21:58)
[2017-10-13] MEDS: TOLNAFTATE 1% CREAM 15 GM TUBE TP SCH ×2 (10:36→22:02)
[2017-10-13] MEDS: CYCLOBENZAPRINE HCL 10 MG TABLET (FP) PO PRN ×2 (13:15→22:04)
--- NOTE | 2017-10-13 14:33 | PN ---
BHS Progress Note (SOAP) Subjective: Body Aches, Anxious, Sweating. Objective: PATIENT A & O X 3, OBSERVED AMBULATING ON UNIT. NO ACUTE DISTRESS. 10/13/17 14:29 Vital Signs Temperature 97.6 F 10/13/17 09:50 Pulse Rate 98 H 10/13/17 09:50 Respiratory Rate 18 10/13/17 09:50 Blood Pressure 113/68 10/13/17 09:50 O2 Sat by Pulse Oximetry (%) Laboratory Tests 10/09/17 10/09/17 10/09/17 08:00 08:00 08:00 WBC RBC Hgb Hct MCV MCH MCHC RDW Plt Count MPV Neutrophils % Lymphocytes % Monocytes % Eosinophils % Basophils % PT with INR 25.30 H INR 2.24 H Sodium 142 Potassium 3.8 Chloride 108 H Carbon Dioxide 27 D Anion Gap 7 L BUN 25 H Creatinine 1.0 D Creat Clearance w eGFR > 60 Random Glucose 105 Calcium 7.9 L Total Bilirubin 0.1 L D AST 77 H D ALT 42 Alkaline Phosphatase 63 D Total Protein 7.4 Albumin 3.4 Urine Color Urine Appearance Urine pH Ur Specific [place] Urine Protein Urine Glucose (UA) Urine Ketones Urine Blood Urine Nitrite Urine Bilirubin Urine Urobilinogen Ur Leukocyte Esterase RPR Titer Nonreactive 10/09/17 10/09/17 10/11/17 08:00 08:50 06:00 WBC 5.5 D RBC 3.72 L Hgb 11.2 L Hct 33.9 L MCV 91.2 MCH 30.0 MCHC 32.9 RDW 15.2 Plt Count 255 D MPV 7.8 Neutrophils % 53.2 Lymphocytes % 30.9 Monocytes % 13.1 H Eosinophils % 2.3 Basophils % 0.5 PT with INR 25.90 H INR 2.29 H Sodium Potassium Chloride Carbon Dioxide Anion Gap BUN Creatinine Creat Clearance w eGFR Random Glucose Calcium Total Bilirubin AST ALT Alkaline Phosphatase Total Protein Albumin Urine Color Yellow Urine Appearance Clear Urine pH 5.0 Ur Specific [place] 1.024 Urine Protein Negative Urine Glucose (UA) Negative Urine Ketones Negative Urine Blood Negative Urine Nitrite Negative Urine Bilirubin Negative Urine Urobilinogen Negative Ur Leukocyte Esterase Negative RPR Titer 10/11/17 07:00 WBC RBC Hgb Hct MCV MCH MCHC RDW Plt Count MPV Neutrophils % Lymphocytes % Monocytes % Eosinophils % Basophils % PT with INR INR Sodium Potassium Chloride Carbon Dioxide Anion Gap BUN Creatinine Creat Clearance w eGFR Random Glucose Calcium Total Bilirubin AST 37 D ALT Alkaline Phosphatase Total Protein Albumin Urine Color Urine Appearance Urine pH Ur Specific [place] Urine Protein Urine Glucose (UA) Urine Ketones Urine Blood Urine Nitrite Urine Bilirubin Urine Urobilinogen Ur Leukocyte Esterase RPR Titer LABS NOTED. Assessment: 10/13/17 14:30 WITHDRAWAL SYMPTOMS. Plan: CONTINUE DETOX. INCREASE DAILY PO FLUID INTAKE.
[2017-10-13] MEDS: WARFARIN NA 2 MG TABLET (UD) PO SCH (17:35)
[2017-10-13] MEDS: QUEtiapine FUMARATE 100 MG TABLET (FP) PO SCH (21:58)
[2017-10-13] MEDS: ZOLPIDEM TARTRATE 5 MG TABLET PO PRN (22:02)
[2017-10-13] MEDS: THIAMINE HCL 100 MG TABLET (FP) PO SCH (22:54)
[2017-10-14] MEDS: FUROSEMIDE 20 MG TABLET (FP) PO SCH (05:27)
[2017-10-14] MEDS ORDERED: METHADONE HCL 5 MG TABLET (FOR DETOX USE ONLY) PO SCH (06:00)
[2017-10-14] MEDS: CYCLOBENZAPRINE HCL 10 MG TABLET (FP) PO PRN (06:31)
[2017-10-14 09:29] VITALS: BP 120/77; PULSE 117; TEMP 97.8
--- NOTE | 2017-10-14 19:20 | PN ---
S Progress Note (SOAP) Subjective: Patient denies current Detox symptoms and reports that he feels well overall. Objective: PATIENT A & X 3, OBSERVED AMBULATING ON UNIT. NO ACUTE DISTRESS. 10/14/17 19:18 Vital Signs Temperature 97.8 F 10/14/17 09:10 Pulse Rate 117 H 10/14/17 09:10 Respiratory Rate 20 10/14/17 09:10 Blood Pressure 120/77 10/14/17 09:10 O2 Sat by Pulse Oximetry (%) Laboratory Tests 10/09/17 10/09/17 10/09/17 08:00 08:00 08:00 WBC RBC Hgb Hct MCV MCH MCHC RDW Plt Count MPV Neutrophils % Lymphocytes % Monocytes % Eosinophils % Basophils % PT with INR 25.30 H INR 2.24 H Sodium 142 Potassium 3.8 Chloride 108 H Carbon Dioxide 27 D Anion Gap 7 L BUN 25 H Creatinine 1.0 D Creat Clearance w eGFR > 60 Random Glucose 105 Calcium 7.9 L Total Bilirubin 0.1 L D AST 77 H D ALT 42 Alkaline Phosphatase 63 D Total Protein 7.4 Albumin 3.4 Urine Color Urine Appearance Urine pH Ur Specific [place] Urine Protein Urine Glucose (UA) Urine Ketones Urine Blood Urine Nitrite Urine Bilirubin Urine Urobilinogen Ur Leukocyte Esterase RPR Titer Nonreactive 10/09/17 10/09/17 10/11/17 08:00 08:50 06:00 WBC 5.5 D RBC 3.72 L Hgb 11.2 L Hct 33.9 L MCV 91.2 MCH 30.0 MCHC 32.9 RDW 15.2 Plt Count 255 D MPV 7.8 Neutrophils % 53.2 Lymphocytes % 30.9 Monocytes % 13.1 H Eosinophils % 2.3 Basophils % 0.5 PT with INR 25.90 H INR 2.29 H Sodium Potassium Chloride Carbon Dioxide Anion Gap BUN Creatinine Creat Clearance w eGFR Random Glucose Calcium Total Bilirubin AST ALT Alkaline Phosphatase Total Protein Albumin Urine Color Yellow Urine Appearance Clear Urine pH 5.0 Ur Specific [place] 1.024 Urine Protein Negative Urine Glucose (UA) Negative Urine Ketones Negative Urine Blood Negative Urine Nitrite Negative Urine Bilirubin Negative Urine Urobilinogen Negative Ur Leukocyte Esterase Negative RPR Titer 10/11/17 07:00 WBC RBC Hgb Hct MCV MCH MCHC RDW Plt Count MPV Neutrophils % Lymphocytes % Monocytes % Eosinophils % Basophils % PT with INR INR Sodium Potassium Chloride Carbon Dioxide Anion Gap BUN Creatinine Creat Clearance w eGFR Random Glucose Calcium Total Bilirubin AST 37 D ALT Alkaline Phosphatase Total Protein Albumin Urine Color Urine Appearance Urine pH Ur Specific [place] Urine Protein Urine Glucose (UA) Urine Ketones Urine Blood Urine Nitrite Urine Bilirubin Urine Urobilinogen Ur Leukocyte Esterase RPR Titer LABS NOTED. Assessment: 10/14/17 19:19 COMPLETION OF DETOX REGIMEN. Plan: PATIENT SCHEDULED FOR DISCHARGE FROM DETOX UNIT TODAY.
--- NOTE | 2017-10-14 19:26 | DS ---
[facility] Detox Discharge Summary Admission Date: 10/08/17 Discharge Date: 10/14/17 - History Present History: Alcohol Dependence, Cocaine Dependence, Opioid Dependence, Sedative Dependence Additional Comments: PATIENT GOING HOME TO ATTEND TO FAMILY MATTERS. PATIENT ADVISED TO CONSIDER LOCAL 12-STEP/NA/AA OUTPATIENT SUPPORT GROUPS FOR AFTERCARE. PATIENT WAS DISCHARGED FROM DETOX UNIT IN STABLE MEDICAL CONDITION. Pertinent Past History: History of Pulmonary Embolism, History of IVC Placement, History of Seizures, HTN, Bipolar Disorder, Nicotine Dependence, Depression, Insomnia, Anxiety. - Physical Exam Results Vital Signs: Vital Signs Temperature 97.8 F 10/14/17 09:10 Pulse Rate 117 H 10/14/17 09:10 Respiratory Rate 20 10/14/17 09:10 Blood Pressure 120/77 10/14/17 09:10 O2 Sat by Pulse Oximetry (%) Pertinent Admission Physical Exam Findings: WITHDRAWAL SYMPTOMS. Laboratory Tests 10/09/17 10/09/17 10/09/17 08:00 08:00 08:00 WBC RBC Hgb Hct MCV MCH MCHC RDW Plt Count MPV Neutrophils % Lymphocytes % Monocytes % Eosinophils % Basophils % PT with INR 25.30 H INR 2.24 H Sodium 142 Potassium 3.8 Chloride 108 H Carbon Dioxide 27 D Anion Gap 7 L BUN 25 H Creatinine 1.0 D Creat Clearance w eGFR > 60 Random Glucose 105 Calcium 7.9 L Total Bilirubin 0.1 L D AST 77 H D ALT 42 Alkaline Phosphatase 63 D Total Protein 7.4 Albumin 3.4 Urine Color Urine Appearance Urine pH Ur Specific [place] Urine Protein Urine Glucose (UA) Urine Ketones Urine Blood Urine Nitrite Urine Bilirubin Urine Urobilinogen Ur Leukocyte Esterase RPR Titer Nonreactive 10/09/17 10/09/17 10/11/17 08:00 08:50 06:00 WBC 5.5 D RBC 3.72 L Hgb 11.2 L Hct 33.9 L MCV 91.2 MCH 30.0 MCHC 32.9 RDW 15.2 Plt Count 255 D MPV 7.8 Neutrophils % 53.2 Lymphocytes % 30.9 Monocytes % 13.1 H Eosinophils % 2.3 Basophils % 0.5 PT with INR 25.90 H INR 2.29 H Sodium Potassium Chloride Carbon Dioxide Anion Gap BUN Creatinine Creat Clearance w eGFR Random Glucose Calcium Total Bilirubin AST ALT Alkaline Phosphatase Total Protein Albumin Urine Color Yellow Urine Appearance Clear Urine pH 5.0 Ur Specific [place] 1.024 Urine Protein Negative Urine Glucose (UA) Negative Urine Ketones Negative Urine Blood Negative Urine Nitrite Negative Urine Bilirubin Negative Urine Urobilinogen Negative Ur Leukocyte Esterase Negative RPR Titer 10/11/17 07:00 WBC RBC Hgb Hct MCV MCH MCHC RDW Plt Count MPV Neutrophils % Lymphocytes % Monocytes % Eosinophils % Basophils % PT with INR INR Sodium Potassium Chloride Carbon Dioxide Anion Gap BUN Creatinine Creat Clearance w eGFR Random Glucose Calcium Total Bilirubin AST 37 D ALT Alkaline Phosphatase Total Protein Albumin Urine Color Urine Appearance Urine pH Ur Specific [place] Urine Protein Urine Glucose (UA) Urine Ketones Urine Blood Urine Nitrite Urine Bilirubin Urine Urobilinogen Ur Leukocyte Esterase RPR Titer LABS NOTED. - Treatment Hospital Course: Detox Protocol Followed, Detoxed Safely, Responded well, Discharged Condition Good Patient has Accepted a Rehab Referral to: PT GOING HOME AT THIST TIME, ADVISED TO CONSIDER 12-STEP/NA/AA GROUPS. - Medication Discharge Medications: Ambulatory Orders Warfarin Sodium [Coumadin] 8 mg PO HS 10/08/17 Clonidine HCl [Catapres] 0.1 mg PO TID 10/09/17 Quetiapine Fumarate [Seroquel] 100 mg PO HS #30 tablet 10/13/17 - Diagnosis (1) Alcohol dependence with uncomplicated withdrawal Status: Acute (2) Anxiolytic withdrawal without complication Status: Acute (3) Cocaine dependence Status: Chronic Qualifiers: Substance use status: uncomplicated Qualified Code(s): F14.20 - Cocaine dependence, uncomplicated (4) Nicotine dependence Status: Chronic Qualifiers: Nicotine product type: cigarettes Substance use status: uncomplicated Qualified Code(s): F17.210 - Nicotine dependence, cigarettes, uncomplicated (5) History of pulmonary embolism Status: Chronic (6) Phencyclidine abuse Status: Chronic (7) HTN (hypertension) Status: Chronic Qualifiers: Hypertension type: essential hypertension (8) Opioid dependence with withdrawal Status: Acute (9) Obesity Status: Chronic (10) Drug-induced mood disorder Status: Acute (11) Insomnia Status: Acute Qualifiers: Insomnia type: unspecified Qualified Code(s): G47.00 - Insomnia, unspecified - AMA Did Patient Leave Against Medical Advice: No
== END 2017-10-14 09:17 | disposition home or self-care (01) | DRG 897 ==
LOC: YASAS 23:27 → Y3N 23:57
PROVIDERS: ADMIT Internal Medicine; ATTEND Internal Medicine
PROC: HZ2ZZZZ Detoxification Services for Substance Abuse Treatment (ICD-10-PCS; principal; 2017-10-08)
DX: F11.23 Opioid dependence with withdrawal (principal); F14.20 Cocaine dependence, uncomplicated; F10.230 Alcohol dependence with withdrawal, uncomplicated; F13.230 Sedative, hypnotic or anxiolytic dependence with withdrawal, uncomplicated; F17.210 Nicotine dependence, cigarettes, uncomplicated; G47.00 Insomnia, unspecified; Z86.711 Personal history of pulmonary embolism; Z79.01 Long term (current) use of anticoagulants; E66.9 Obesity, unspecified; Z68.39 Body mass index [BMI] 39.0-39.9, adult; Z87.828 Personal history of other (healed) physical injury and trauma
CPT/HCPCS: 36415; 80053; 81003; 84450; 85025; 85610; 86593; 93005; 93010; J0735

== ENCOUNTER 2017-12-22 01:34 | Inpatient (IN) | payer OTHER ==
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
[2017-12-22 01:59] VITALS: BMI 42.2
[2017-12-22] MEDS ORDERED: MAGNESIUM HYDROX 2400MG/30ML ORAL SUSPENSION 30 ML CUP PO PRN (02:00)
[2017-12-22] MEDS ORDERED: METHADONE HCL 10 MG TABLET (FOR DETOX USE ONLY) PO ONE ×3 (02:00→22:00)
[2017-12-22] MEDS ORDERED: IBUPROFEN 400 MG TABLET (FP) PO PRN (02:00)
[2017-12-22] MEDS ORDERED: guaiFENesin/D-METHORPHAN HB 10 ML UNIT-DOSE CUPS PO PRN (02:00)
[2017-12-22] MEDS ORDERED: MAGNESIUM CITRATE 300 ML BOTTLE PO PRN (02:00)
[2017-12-22] MEDS ORDERED: MAG HYDROX/AL HYDROX/SIMETH 30 ML UNIT-DOSE CUP PO PRN (02:00)
[2017-12-22] MEDS ORDERED: LOPERAMIDE HCL 2 MG CAPSULE PO PRN (02:00)
[2017-12-22] MEDS ORDERED: P-EPHED 60MG/TRIPROLIDI 2.5MG TABLET PO PRN (02:00)
[2017-12-22] MEDS ORDERED: chlordiazePOXIDE HCL 25 MG CAPSULE PO PRN (02:00)
[2017-12-22] MEDS ORDERED: MENTHOL/PHENOL 1 EACH UD MM PRN (02:00)
[2017-12-22] MEDS ORDERED: diazePAM 5 MG TABLET PO ONE (02:46)
[2017-12-22] MEDS: ACETAMINOPHEN 325 MG TABLET (FP) PO PRN (03:09)
[2017-12-22] MEDS ORDERED: chlordiazePOXIDE HCL 25 MG CAPSULE PO SCH (05:00)
[2017-12-22] MEDS: diazePAM 5 MG TABLET PO SCH ×3 (06:17→22:16)
--- NOTE | 2017-12-22 09:27 | CONSULT ---
[facility] Psychiatric Consult - Data Date of interview: 12/22/17 Admission source: [facility] Identifying data: Patient is a 47 year single male, father of one. domiciled and supported by [facility]. This is one of multiple admissions for patient. Pt. admitted to for marijuana, cocaine, opiate and PCP dependence. Substance Abuse History: Smoking Cessation. Smoking history: Former smoker. Have you smoked in the past 12 months: Yes. Aproximately how many cigarettes per day: 20 (POOR HISTORIAN). Cigars Per Day: 0. Hx Chewing Tobacco Use: No. Initiated information on smoking cessation: No. - Substance & Tx. History. Hx Alcohol Use: Yes. Hx Substance Use: Yes. Substance Use Type: Alcohol, Cocaine , Heroin, Tranquilizers (XANAX). Hx Substance Use Treatment: Yes ([facility]). - Substances Abused. HEROIN. Route: Injection. Frequency: Daily. Amount used: 30. Age of first use: 17. Date of Last Use: 12/19/17. XANAX. Route : Inhalation. Frequency: Daily. Amount used: 14 MG. Age of first use: 37. Date of Last Use: 12/19/17. COCAINE. Route: Smoking. Frequency: 1-2 times per week. Amount used: $20. Age of first use: 30. Date of Last Use: . ETOH. Route: Oral. Frequency: Daily. Amount used: 3 PINTS. Age of first use: 18. Date of Last Use: 12/20/17 Medical History: PE/IVC on Coumadin, hypertension Psychiatric History: Patient reports two psychiatric hospitalizations ([facility] and [facility]). OPD was provided by Dr. Abdullahi ( psychiatrist retired) but has not seen a psychiatrist in over one year. Claims to have a diagnosis of bipolar disorder and anxiety. Pt. is nonadherent to outpatient treatment. States he has been prescribed seroquel in the past. Chart reviewed. Pt denies h/ o suicide attempt. Physical/Sexual Abuse/Trauma History: Denies. Mental Status Exam - Mental Status Exam Alert and Oriented to: Time, Place, Person Cognitive Function: Good Patient Appearance: Well Groomed Mood: Hopeful Patient Behavior: Appropriate Speech Pattern: Appropriate Voice Loudness: Normal Thought Process: Intact, Goal Oriented Thought Disorder: Not Present Hallucinations: Denies Suicidal Ideation: Denies Homicidal Ideation: Denies Insight/Judgement: Poor Sleep: Poorly Appetite: Good Muscle strength/Tone: Normal Gait/Station: Normal Psychiatric Findings - Problem List ([place] 1, 2,3) (1) Alcohol dependence with uncomplicated withdrawal Current Visit: Yes Status: Acute (2) Drug-induced mood disorder Current Visit: Yes Status: Acute (3) HTN (hypertension) Current Visit: Yes Status: Chronic Qualifiers: Hypertension type: essential hypertension (4) Nicotine dependence Current Visit: Yes Status: Chronic Qualifiers: Nicotine product type: cigarettes Substance use status: uncomplicated Qualified Code(s): F17.210 - Nicotine dependence, cigarettes, uncomplicated (5) Opioid dependence Current Visit: Yes Status: Acute (6) Cocaine dependence Current Visit: Yes Status: Chronic Qualifiers: Substance use status: uncomplicated Qualified Code(s): F14.20 - Cocaine dependence, uncomplicated (7) History of pulmonary embolism Current Visit: Yes Status: Chronic Comment: TAKING COUMADIN (8) Phencyclidine abuse Current Visit: Yes Status: Chronic (9) Substance-induced sleep disorder Current Visit: Yes Status: Acute - Initial Treatment Plan Initial Treatment Plan: Psychoeducation provied. Detoxification in progress. Seroquel 100mg qhs. Benefits and side effects discussed. Verbal consent given. Will continue to monitor.
[2017-12-22] MEDS: diazePAM 5 MG TABLET PO PRN ×2 (10:13→18:34)
[2017-12-22] MEDS: PRENATAL VITAMINS W/ FOLIC ACID TABLET (FP) PO SCH (10:13)
--- NOTE | 2017-12-22 10:47 | EKG ---
Test Reason : Blood Pressure : / mmHG Vent. Rate : 085 BPM Atrial Rate : 085 BPM P-R Int : 156 ms QRS Dur : 086 ms QT Int : 366 ms P-R-T Axes : 073 067 044 degrees QTc Int : 435 ms NORMAL SINUS RHYTHM NORMAL ECG WHEN COMPARED WITH ECG OF 09-OCT-2017 00:52, NONSPECIFIC T WAVE ABNORMALITY NO LONGER EVIDENT IN ANTERIOR LEADS Confirmed by RIVAS WEISS, ALBARO ([id number]) on 12/22/2017 10:47:32 AM Referred By: Confirmed By:ALBARO HATHAWAY MD
[2017-12-22] MEDS ORDERED: PANTOPRAZOLE 40 MG TABLET (FP) PO ONE (11:02)
[2017-12-22] MEDS ORDERED: COLLOIDAL OATMEAL 1 BAR EACH TP PRN (11:05)
[2017-12-22 11:16] LABS: HEMATOCRIT 39.3 % (35.4-49); HEMOGLOBIN 12.9 GM/dL (11.7-16.9); MCH 29.8 pg (25.7-33.7); MCHC 32.8 g/dl (32.0-35.9); MEAN CELL VOLUME 90.9 fl (80-96); MEAN PLT VOLUME 8.1 fl (7.5-11.1); PLATELET COUNT 250 K/MM3 (134-434); RBC 4.33 M/mm3 (4.00-5.60); RDW 15.3 % (11.9-15.9); WHITE BLOOD COUNT 4.3 K/mm3 (4.0-10.0)
[2017-12-22 11:24] LABS: INR 2.88 (0.82-1.09); PROTHROMBIN TIME (PATIENT) 32.5 SEC (9.7-13.0)
--- NOTE | 2017-12-22 11:28 | PN ---
S CIWA - CIWA Score Nausea/Vomitin-No Nausea/No Vomiting Muscle Tremors: 2 Anxiety: 5 Agitation: 4-Moderately Restless Paroxysmal Sweats: 3 Orientation: 0-Oriented Tacttile Disturbances: 2-Mild Itch/Numbness/Burn Auditory Disturbances: 0-None Visual Disturbances: 2-Mild Sensitivity Headache: 0-None Present CIWA-Ar Total Score: 18 BHS COWS - Scale Resting Pulse: 1= [place] 81-100 Sweatin= Chills/Flushing Restless Observation: 1= Difficult to Sit Still Pupil Size: 0= Normal to Room Light Bone or Joint Aches: 4=Acute Joint/Muscle Pain Runny Nose/ Eye Tearin= None GI Upset > 30mins: 1= Stomach Cramp Tremor Observation of Outstretched Hands: 2= Slight Tremor Visible Yawning Observation: 0= None Anxiety or Irritability: 4=Extreme Anxiety Goose Flesh Skin: 3=Piloerection COWS Score: 17 BHS Progress Note (SOAP) Subjective: Body Aches, Tremors, Stomach Cramping, Anxious, Interrupted Sleep. Objective: PATIENT A & O X 3, OBSERVED AMBULATING ON UNIT. NO ACUTE DISTRESS. 12/22/17 11:33 Vital Signs Temperature 97.5 F L 12/22/17 09:03 Pulse Rate 97 H 12/22/17 09:03 Respiratory Rate 20 12/22/17 09:03 Blood Pressure 145/92 12/22/17 09:03 O2 Sat by Pulse Oximetry (%) Laboratory Tests 12/22/17 12/22/17 07:00 07:00 WBC 4.3 RBC 4.33 Hgb 12.9 D Hct 39.3 D MCV 90.9 MCH 29.8 MCHC 32.8 RDW 15.3 Plt Count 250 MPV 8.1 PT with INR 32.50 H INR 2.88 H LABS NOTED. CMP, UA, RPR RESULTS PENDING. 12/22/17 11:35 Assessment: 12/22/17 11:37 WITHDRAWAL SYMPTOMS. Plan: CONTINUE DETOX. INCREASE DAILY PO FLUID INTAKE. PRN FLEXERIL FOR BODY ACHES / MUSCLE SPASMS.
[2017-12-22 11:59] LABS: ALBUMIN 3.8 g/dl (3.4-5.0); ALK PHOS 70 U/L (45-117); ANION GAP 6 (8-16); BILIRUBIN,TOTAL 0.2 mg/dL (0.2-1.0); BLOOD UREA NITROGEN 21 mg/dL (7-18); CALCIUM 8.9 mg/dL (8.5-10.1); CHLORIDE 104 mmol/L (98-107); CO2 30 mmol/L (21-32); CREATININE 0.8 mg/dL (0.7-1.3); GLUCOSE,RANDOM 99 mg/dL (74-106); POTASSIUM 4.2 mmol/L (3.5-5.1); SGOT/AST 35 U/L (15-37); SGPT/ALT 35 U/L (12-78); SODIUM 140 mmol/L (136-145); TOT PROT 8.5 g/dl (6.4-8.2)
[2017-12-22] MEDS: CYCLOBENZAPRINE HCL 10 MG TABLET (FP) PO PRN ×2 (12:12→22:16)
[2017-12-22] MEDS: AMMONIUM LACTATE 12% LOTION 225 GM BOTTLE TP SCH ×2 (12:12→22:17)
[2017-12-22] MEDS: cloNIDine HCL 0.1 MG TABLET PO SCH ×2 (12:12→22:16)
[2017-12-22] MEDS: TOLNAFTATE 1% CREAM 15 GM TUBE TP SCH ×2 (12:12→22:16)
[2017-12-22 15:26] LABS: URINE APPEARANCE CLEAR; URINE BILIRUBIN NEGATIVE (<2.0 mg/dL); URINE COLOR YELLOW; URINE GLUCOSE (UA) NEGATIVE (NEGATIVE); URINE KETONE NEGATIVE (NEGATIVE); URINE LEUK ESTERASE NEGATIVE (NEGATIVE); URINE NITRITE NEGATIVE (NEGATIVE); URINE PROTEIN NEGATIVE (NEGATIVE); URINE UROBILINOGEN NEGATIVE mg/dL (0.2-1.0)
[2017-12-22] MEDS ORDERED: MELATONIN 5 MG TABLETS PO PRN (22:00)
[2017-12-22] MEDS: WARFARIN NA 2 MG TABLET (UD) PO SCH (22:16)
[2017-12-22] MEDS: GABAPENTIN 400 MG CAPSULE (FP) PO SCH (22:16)
[2017-12-22] MEDS: QUEtiapine FUMARATE 100 MG TABLET (FP) PO SCH (22:17)
[2017-12-22] MEDS: THIAMINE HCL 100 MG TABLET (FP) PO SCH (22:26)
[2017-12-23] MEDS ORDERED: chlordiazePOXIDE HCL 25 MG CAPSULE PO SCH (05:00)
[2017-12-23] MEDS: diazePAM 5 MG TABLET PO SCH ×3 (05:18→22:08)
[2017-12-23] MEDS: CYCLOBENZAPRINE HCL 10 MG TABLET (FP) PO PRN ×2 (06:13→22:07)
[2017-12-23] MEDS: diazePAM 5 MG TABLET PO PRN ×3 (07:13→19:58)
[2017-12-23] MEDS: ACETAMINOPHEN 325 MG TABLET (FP) PO PRN (07:14)
[2017-12-23] MEDS ORDERED: METHADONE HCL 10 MG TABLET (FOR DETOX USE ONLY) PO SCH (10:00)
[2017-12-23] MEDS: PRENATAL VITAMINS W/ FOLIC ACID TABLET (FP) PO SCH (10:24)
[2017-12-23] MEDS: GABAPENTIN 400 MG CAPSULE (FP) PO SCH ×2 (10:24→22:07)
[2017-12-23] MEDS: TOLNAFTATE 1% CREAM 15 GM TUBE TP SCH ×2 (10:24→22:08)
[2017-12-23] MEDS: PANTOPRAZOLE 40 MG TABLET (FP) PO SCH (10:25)
[2017-12-23] MEDS: cloNIDine HCL 0.1 MG TABLET PO SCH ×2 (10:25→22:07)
[2017-12-23] MEDS: AMMONIUM LACTATE 12% LOTION 225 GM BOTTLE TP SCH ×2 (10:55→22:07)
--- NOTE | 2017-12-23 11:57 | PN ---
S CIWA - CIWA Score Nausea/Vomitin-No Nausea/No Vomiting Muscle Tremors: 2 Anxiety: 4-Mod. Anxious/Guarded Agitation: 4-Moderately Restless Paroxysmal Sweats: 3 Orientation: 0-Oriented Tacttile Disturbances: 2-Mild Itch/Numbness/Burn Auditory Disturbances: 0-None Visual Disturbances: 2-Mild Sensitivity Headache: 0-None Present CIWA-Ar Total Score: 17 BHS COWS - Scale Resting Pulse: 2= [place] 101-120 Sweatin= Chills/Flushing Restless Observation: 1= Difficult to Sit Still Pupil Size: 0= Normal to Room Light Bone or Joint Aches: 2= Severe Diffuse Aches Runny Nose/ Eye Tearin= None GI Upset > 30mins: 0= None Tremor Observation of Outstretched Hands: 2= Slight Tremor Visible Yawning Observation: 1= 1-2x During Session Anxiety or Irritability: 2=Irritable/Anxious Goose Flesh Skin: 3=Piloerection COWS Score: 14 S Progress Note (SOAP) Subjective: Body Aches, Anxious, Sweating, Tremors. Objective: PATIENT A & O X 3, OBSERVED AMBULATING ON UNIT. NO ACUTE DISTRESS. 12/23/17 11:58 Vital Signs Temperature 98.7 F 12/23/17 09:02 Pulse Rate 119 H 12/23/17 09:02 Respiratory Rate 18 12/23/17 09:02 Blood Pressure 120/77 12/23/17 09:02 O2 Sat by Pulse Oximetry (%) Laboratory Tests 12/22/17 12/22/17 12/22/17 07:00 07:00 07:00 WBC 4.3 RBC 4.33 Hgb 12.9 D Hct 39.3 D MCV 90.9 MCH 29.8 MCHC 32.8 RDW 15.3 Plt Count 250 MPV 8.1 PT with INR 32.50 H INR 2.88 H Sodium 140 Potassium 4.2 Chloride 104 Carbon Dioxide 30 Anion Gap 6 L BUN 21 H Creatinine 0.8 Creat Clearance w eGFR > 60 Random Glucose 99 Calcium 8.9 Total Bilirubin 0.2 D AST 35 ALT 35 Alkaline Phosphatase 70 Total Protein 8.5 H Albumin 3.8 Urine Color Urine Appearance Urine pH Ur Specific [place] Urine Protein Urine Glucose (UA) Urine Ketones Urine Blood Urine Nitrite Urine Bilirubin Urine Urobilinogen Ur Leukocyte Esterase RPR Titer 12/22/17 12/22/17 07:00 09:30 WBC RBC Hgb Hct MCV MCH MCHC RDW Plt Count MPV PT with INR INR Sodium Potassium Chloride Carbon Dioxide Anion Gap BUN Creatinine Creat Clearance w eGFR Random Glucose Calcium Total Bilirubin AST ALT Alkaline Phosphatase Total Protein Albumin Urine Color Yellow Urine Appearance Clear Urine pH 5.0 Ur Specific [place] 1.029 Urine Protein Negative Urine Glucose (UA) Negative Urine Ketones Negative Urine Blood Negative Urine Nitrite Negative Urine Bilirubin Negative Urine Urobilinogen Negative Ur Leukocyte Esterase Negative RPR Titer Nonreactive LABS NOTED. Assessment: 12/23/17 11:58 WITHDRAWAL SYMPTOMS. Plan: CONTINUE DETOX. INCREASE DAILY PO FLUID INTAKE. PRN FLEXERIL FOR BODY ACHES / MUSCLE SPASMS.
[2017-12-23] MEDS: WARFARIN NA 2 MG TABLET (UD) PO SCH (22:06)
[2017-12-23] MEDS: QUEtiapine FUMARATE 100 MG TABLET (FP) PO SCH (22:06)
[2017-12-23] MEDS: THIAMINE HCL 100 MG TABLET (FP) PO SCH (22:37)
[2017-12-24] MEDS: diazePAM 5 MG TABLET PO PRN ×3 (03:42→17:42)
[2017-12-24] MEDS ORDERED: chlordiazePOXIDE 5 MG CAPSULE PO SCH (05:00)
[2017-12-24] MEDS: PANTOPRAZOLE 40 MG TABLET (FP) PO SCH (09:21)
[2017-12-24] MEDS: AMMONIUM LACTATE 12% LOTION 225 GM BOTTLE TP SCH (09:22)
[2017-12-24] MEDS: PRENATAL VITAMINS W/ FOLIC ACID TABLET (FP) PO SCH (09:22)
[2017-12-24] MEDS: cloNIDine HCL 0.1 MG TABLET PO SCH (09:22)
[2017-12-24] MEDS: GABAPENTIN 400 MG CAPSULE (FP) PO SCH (09:22)
[2017-12-24] MEDS: CYCLOBENZAPRINE HCL 10 MG TABLET (FP) PO PRN (09:26)
[2017-12-24] MEDS: TOLNAFTATE 1% CREAM 15 GM TUBE TP SCH (09:43)
[2017-12-24] MEDS ORDERED: METHADONE HCL 5 MG TABLET (FOR DETOX USE ONLY) PO SCH (10:00)
[2017-12-24] MEDS ORDERED: diazePAM 5 MG TABLET PO SCH (10:00)
--- NOTE | 2017-12-24 13:43 | PN ---
B[facility] Progress Note (SOAP) Subjective: Body Aches, Anxious, Interrupted Sleep. Objective: PATIENT A & O X 3, OBSERVED AMBULATING ON UNIT. NO ACUTE DISTRESS. 12/24/17 13:42 Vital Signs Temperature 97.0 F L 12/24/17 13:30 Pulse Rate 101 H 12/24/17 13:30 Respiratory Rate 14 12/24/17 13:30 Blood Pressure 118/77 12/24/17 13:30 O2 Sat by Pulse Oximetry (%) Laboratory Tests 12/22/17 12/22/17 12/22/17 07:00 07:00 07:00 WBC 4.3 RBC 4.33 Hgb 12.9 D Hct 39.3 D MCV 90.9 MCH 29.8 MCHC 32.8 RDW 15.3 Plt Count 250 MPV 8.1 PT with INR 32.50 H INR 2.88 H Sodium 140 Potassium 4.2 Chloride 104 Carbon Dioxide 30 Anion Gap 6 L BUN 21 H Creatinine 0.8 Creat Clearance w eGFR > 60 Random Glucose 99 Calcium 8.9 Total Bilirubin 0.2 D AST 35 ALT 35 Alkaline Phosphatase 70 Total Protein 8.5 H Albumin 3.8 Urine Color Urine Appearance Urine pH Ur Specific [place] Urine Protein Urine Glucose (UA) Urine Ketones Urine Blood Urine Nitrite Urine Bilirubin Urine Urobilinogen Ur Leukocyte Esterase RPR Titer 12/22/17 12/22/17 07:00 09:30 WBC RBC Hgb Hct MCV MCH MCHC RDW Plt Count MPV PT with INR INR Sodium Potassium Chloride Carbon Dioxide Anion Gap BUN Creatinine Creat Clearance w eGFR Random Glucose Calcium Total Bilirubin AST ALT Alkaline Phosphatase Total Protein Albumin Urine Color Yellow Urine Appearance Clear Urine pH 5.0 Ur Specific [place] 1.029 Urine Protein Negative Urine Glucose (UA) Negative Urine Ketones Negative Urine Blood Negative Urine Nitrite Negative Urine Bilirubin Negative Urine Urobilinogen Negative Ur Leukocyte Esterase Negative RPR Titer Nonreactive LABS NOTED. Assessment: 12/24/17 13:42 WITHDRAWAL SYMPTOMS. Plan: CONTINUE DETOX. INCREASE DAILY PO FLUID INTAKE. PRN FLEXERIL FOR BODY ACHES / MUSCLE SPASMS.
[2017-12-24 17:44] VITALS: BP 113/64; PULSE 92; TEMP 97.7
--- NOTE | 2017-12-24 18:51 | DS ---
[facility] Detox Discharge Summary Admission Date: 12/22/17 Discharge Date: 12/24/17 - History Present History: Alcohol Dependence, Opioid Dependence Additional Comments: Met with the pt. at the security office. He is leaving AMA and did not state the reason he is leaving. He reported he did not need any medication refills. No withdrawal symptoms noted and reported. Pt. stated he will seek outpatient treatment. - Physical Exam Results Vital Signs: Vital Signs Temperature 97.7 F 12/24/17 17:43 Pulse Rate 92 H 12/24/17 17:43 Respiratory Rate 20 12/24/17 17:43 Blood Pressure 113/64 12/24/17 17:43 O2 Sat by Pulse Oximetry (%) Pertinent Admission Physical Exam Findings: Laboratory Last Values WBC 4.3 K/mm3 (4.0-10.0) 12/22/17 07:00 RBC 4.33 M/mm3 (4.00-5.60) 12/22/17 07:00 Hgb 12.9 GM/dL (11.7-16.9) D 12/22/17 07:00 Hct 39.3 % (35.4-49) D 12/22/17 07:00 MCV 90.9 fl (80-96) 12/22/17 07:00 MCH 29.8 pg (25.7-33.7) 12/22/17 07:00 MCHC 32.8 g/dl (32.0-35.9) 12/22/17 07:00 RDW 15.3 % (11.9-15.9) 12/22/17 07:00 Plt Count 250 K/MM3 (134-434) 12/22/17 07:00 MPV 8.1 fl (7.5-11.1) 12/22/17 07:00 PT with INR 32.50 SEC (9.7-13.0) H 12/22/17 07:00 INR 2.88 (0.82-1.09) H 12/22/17 07:00 Sodium 140 mmol/L (136-145) 12/22/17 07:00 Potassium 4.2 mmol/L (3.5-5.1) 12/22/17 07:00 Chloride 104 mmol/L (98-107) 12/22/17 07:00 Carbon Dioxide 30 mmol/L (21-32) 12/22/17 07:00 Anion Gap 6 (8-16) L 12/22/17 07:00 BUN 21 mg/dL (7-18) H 12/22/17 07:00 Creatinine 0.8 mg/dL (0.7-1.3) 12/22/17 07:00 Creat Clearance w eGFR > 60 (>60) 12/22/17 07:00 Random Glucose 99 mg/dL (74-106) 12/22/17 07:00 Calcium 8.9 mg/dL (8.5-10.1) 12/22/17 07:00 Total Bilirubin 0.2 mg/dL (0.2-1.0) D 12/22/17 07:00 AST 35 U/L (15-37) 12/22/17 07:00 ALT 35 U/L (12-78) 12/22/17 07:00 Alkaline Phosphatase 70 U/L (45-117) 12/22/17 07:00 Total Protein 8.5 g/dl (6.4-8.2) H 12/22/17 07:00 Albumin 3.8 g/dl (3.4-5.0) 12/22/17 07:00 Urine Color Yellow 12/22/17 09:30 Urine Appearance Clear 12/22/17 09:30 Urine pH 5.0 (5.0-8.0) 12/22/17 09:30 Ur Specific [place] 1.029 (1.001-1.035) 12/22/17 09:30 Urine Protein Negative (NEGATIVE) 12/22/17 09:30 Urine Glucose (UA) Negative (NEGATIVE) 12/22/17 09:30 Urine Ketones Negative (NEGATIVE) 12/22/17 09:30 Urine Blood Negative (NEGATIVE) 12/22/17 09:30 Urine Nitrite Negative (NEGATIVE) 12/22/17 09:30 Urine Bilirubin Negative (<2.0 mg/dL) 12/22/17 09:30 Urine Urobilinogen Negative mg/dL (0.2-1.0) 12/22/17 09:30 Ur Leukocyte Esterase Negative (NEGATIVE) 12/22/17 09:30 RPR Titer Nonreactive (NONREACTIVE) 12/22/17 07:00 labs noted - Medication Discharge Medications: Ambulatory Orders Warfarin Sodium [Coumadin] 8 mg PO HS 10/08/17 Clonidine HCl [Catapres] 0.1 mg PO TID 10/09/17 Gabapentin 800 mg PO BID 12/22/17 Quetiapine Fumarate [Seroquel] 100 mg PO HS #30 tablet 12/24/17 - Diagnosis (1) Alcohol dependence with uncomplicated withdrawal Status: Chronic (2) Opioid dependence with withdrawal Status: Chronic (3) Anticoagulant long-term use Status: Chronic (4) GERD (gastroesophageal reflux disease) Status: Chronic Qualifiers: Esophagitis presence: without esophagitis Qualified Code(s): K21.9 - Gastro -esophageal reflux disease without esophagitis (5) HTN (hypertension) Status: Chronic Qualifiers: Hypertension type: essential hypertension (6) History of pulmonary embolism Status: Chronic (7) Obesity Status: Chronic - AMA Did Patient Leave Against Medical Advice: Yes (Did not report any after )
[2017-12-25] MEDS ORDERED: chlordiazePOXIDE HCL 10 MG CAPSULE PO SCH (05:00)
[2017-12-26] MEDS ORDERED: diazePAM 5 MG TABLET PO SCH (10:00)
[2017-12-26] MEDS ORDERED: METHADONE HCL 10 MG TABLET (FOR DETOX USE ONLY) PO SCH (10:00)
[2017-12-27] MEDS ORDERED: METHADONE HCL 5 MG TABLET (FOR DETOX USE ONLY) PO SCH (06:00)
== END 2017-12-24 18:37 | disposition left against medical advice (07) | DRG 894 ==
LOC: YASAS 01:34 → Y3N 01:38
PROVIDERS: ADMIT Family Medicine Addiction Medicine; ATTEND Family Medicine Addiction Medicine
PROC: HZ2ZZZZ Detoxification Services for Substance Abuse Treatment (ICD-10-PCS; principal; 2017-12-22)
DX: F11.23 Opioid dependence with withdrawal (principal); F14.20 Cocaine dependence, uncomplicated; F19.282 Other psychoactive substance dependence with psychoactive substance-induced sleep disorder; Z68.41 Body mass index [BMI] 40.0-44.9, adult; F10.230 Alcohol dependence with withdrawal, uncomplicated; F16.10 Hallucinogen abuse, uncomplicated; F19.24 Other psychoactive substance dependence with psychoactive substance-induced mood disorder; F31.9 Bipolar disorder, unspecified; I10 Essential (primary) hypertension; K21.9 Gastro-esophageal reflux disease without esophagitis; E66.9 Obesity, unspecified; Z86.711 Personal history of pulmonary embolism; Z79.01 Long term (current) use of anticoagulants; Z86.69 Personal history of other diseases of the nervous system and sense organs; Z87.828 Personal history of other (healed) physical injury and trauma; Z87.891 Personal history of nicotine dependence; Z95.828 Presence of other vascular implants and grafts
CPT/HCPCS: 36415; 80053; 81003; 85027; 85610; 86593; 93005; 93010; J0735

== ENCOUNTER 2018-04-30 21:28 | Inpatient (IN) | payer OTHER ==
[2018-04-30 21:47] VITALS: BMI 40.4
[2018-04-30] MEDS ORDERED: MELATONIN 5 MG TABLETS PO PRN (22:00)
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
[2018-04-30] MEDS ORDERED: hydrOXYzine PAMOATE 50 MG CAPSULE (FP) PO PRN (22:28)
[2018-04-30] MEDS ORDERED: MAGNESIUM CITRATE 300 ML BOTTLE PO PRN (22:28)
[2018-04-30] MEDS ORDERED: P-EPHED 60MG/TRIPROLIDI 2.5MG TABLET PO PRN (22:28)
[2018-04-30] MEDS ORDERED: MENTHOL/PHENOL 1 EACH UD MM PRN (22:28)
[2018-04-30] MEDS ORDERED: MAGNESIUM HYDROX 2400MG/30ML ORAL SUSPENSION 30 ML CUP PO PRN (22:28)
[2018-04-30] MEDS ORDERED: IBUPROFEN 400 MG TABLET (FP) PO PRN (22:28)
[2018-04-30] MEDS ORDERED: guaiFENesin/D-METHORPHAN HB 10 ML UNIT-DOSE CUPS PO PRN (22:28)
[2018-04-30] MEDS ORDERED: LOPERAMIDE HCL 2 MG CAPSULE PO PRN (22:28)
[2018-04-30] MEDS ORDERED: MAG HYDROX/AL HYDROX/SIMETH 30 ML UNIT-DOSE CUP PO PRN (22:28)
[2018-04-30] MEDS ORDERED: METHADONE HCL 10 MG TABLET (FOR DETOX USE ONLY) PO ONE ×2 (22:45→23:00)
[2018-04-30] MEDS ORDERED: diazePAM 5 MG TABLET PO ONE (22:45)
[2018-04-30] MEDS: diazePAM 5 MG TABLET PO SCH (23:09)
[2018-04-30] MEDS: GABAPENTIN 400 MG CAPSULE (FP) PO SCH (23:10)
[2018-04-30] MEDS: cloNIDine HCL 0.1 MG TABLET PO SCH (23:10)
[2018-05-01] MEDS: diazePAM 5 MG TABLET PO PRN ×4 (02:57→17:06)
[2018-05-01] MEDS: ACETAMINOPHEN 325 MG TABLET (FP) PO PRN (02:58)
[2018-05-01] MEDS: cloNIDine HCL 0.1 MG TABLET PO SCH ×3 (05:34→22:03)
[2018-05-01] MEDS: diazePAM 5 MG TABLET PO SCH ×3 (05:34→22:03)
[2018-05-01] MEDS ORDERED: METHADONE HCL 10 MG TABLET (FOR DETOX USE ONLY) PO SCH (10:00)
[2018-05-01] MEDS: GABAPENTIN 400 MG CAPSULE (FP) PO SCH ×2 (10:32→22:02)
[2018-05-01] MEDS: COLLOIDAL OATMEAL 1 BAR EACH TP PRN (10:33)
[2018-05-01] MEDS: PRENATAL VITAMINS W/ FOLIC ACID TABLET (FP) PO SCH (10:33)
[2018-05-01 10:34] LABS: BASO % 0.4 % (0-2.0); EOS % 1.4 % (0-4.5); HEMATOCRIT 35.9 % (35.4-49); HEMOGLOBIN 11.5 GM/dL (11.7-16.9); MCHC 32.1 g/dl (32.0-35.9); MEAN CELL VOLUME 90.2 fl (80-96); MEAN PLT VOLUME 8.6 fl (7.5-11.1); MONO % 14.9 % (3.8-10.2); NEUT % 49.3 % (42.8-82.8); PLATELET COUNT 207 K/MM3 (134-434); RBC 3.98 M/mm3 (4.00-5.60); RDW 15.6 % (11.9-15.9); WHITE BLOOD COUNT 4.2 K/mm3 (4.0-10.0)
[2018-05-01 10:34] LABS: URINE APPEARANCE TURBID; URINE BILIRUBIN NEGATIVE (<2.0 mg/dL); URINE COLOR AMBER; URINE GLUCOSE (UA) NEGATIVE (NEGATIVE); URINE KETONE NEGATIVE (NEGATIVE); URINE LEUK ESTERASE NEGATIVE (NEGATIVE); URINE NITRITE NEGATIVE (NEGATIVE); URINE PROTEIN NEGATIVE (NEGATIVE); URINE UROBILINOGEN NEGATIVE mg/dL (0.2-1.0)
[2018-05-01 10:41] LABS: INR 1.57 (0.83-1.09); PROTHROMBIN TIME (PATIENT) 18.6 SEC (9.7-13.0)
[2018-05-01 10:44] LABS: ACTIVATED PTT 34.8 SECONDS (25.2-36.5)
[2018-05-01 10:51] LABS: ALBUMIN 3.4 g/dl (3.4-5.0); ALK PHOS 77 U/L (45-117); ANION GAP 10 MMOL/L (8-16); BILIRUBIN,TOTAL 0.2 mg/dL (0.2-1); BLOOD UREA NITROGEN 27 mg/dL (7-18); CHLORIDE 105 mmol/L (98-107); CO2 25 mmol/L (21-32); CREATININE 0.8 mg/dL (0.55-1.3); GLUCOSE,RANDOM 103 mg/dL (74-106); POTASSIUM 4.3 mmol/L (3.5-5.1); SGOT/AST 22 U/L (15-37); SGPT/ALT 33 U/L (13-61); SODIUM 139 mmol/L (136-145); TOT PROT 7.5 g/dl (6.4-8.2)
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
--- NOTE | 2018-05-01 12:43 | PN ---
[facility] CIWA - CIWA Score Nausea/Vomitin-Mild Nausea/No Vomiting Muscle Tremors: 3 Anxiety: 3 Agitation: 3 Paroxysmal Sweats: 1-Minimal Palms Moist Orientation: 1-Uncertain about Date Tacttile Disturbances: 1-Very Mild Itch/Numbness Auditory Disturbances: 0-None Visual Disturbances: 0-None Headache: 1-Very Mild CIWA-Ar Total Score: 14 BHS COWS - Scale Resting Pulse: 1= [place] 81-100 Sweatin= Chills/Flushing Restless Observation: 1= Difficult to Sit Still Pupil Size: 0= Normal to Room Light Bone or Joint Aches: 2= Severe Diffuse Aches Runny Nose/ Eye Tearin= Nasal Congestion GI Upset > 30mins: 2= Nausea/Diarrhea Tremor Observation of Outstretched Hands: 2= Slight Tremor Visible Yawning Observation: 1= 1-2x During Session Anxiety or Irritability: 1=Feels Anxious/Irritable Goose Flesh Skin: 0=Smooth Skin COWS Score: 12 S Progress Note (SOAP) Subjective: dry skin feet pain from walking on bear ground muscle ache sweat tremor social with peers in [address] reported has blood clot taking coumadin admitted none compliance with coumadin report history of seizure taking keppra Objective: 05/01/18 12:42 Vital Signs Temperature 97.9 F 05/01/18 09:49 Pulse Rate 90 05/01/18 09:49 Respiratory Rate 16 05/01/18 09:49 Blood Pressure 101/60 05/01/18 09:49 O2 Sat by Pulse Oximetry (%) Laboratory Last Values WBC 4.2 K/mm3 (4.0-10.0) 05/01/18 07:35 RBC 3.98 M/mm3 (4.00-5.60) L 05/01/18 07:35 Hgb 11.5 GM/dL (11.7-16.9) L 05/01/18 07:35 Hct 35.9 % (35.4-49) 05/01/18 07:35 MCV 90.2 fl (80-96) 05/01/18 07:35 MCH 29.0 pg (25.7-33.7) 05/01/18 07:35 MCHC 32.1 g/dl (32.0-35.9) 05/01/18 07:35 RDW 15.6 % (11.9-15.9) 05/01/18 07:35 Plt Count 207 K/MM3 (134-434) 05/01/18 07:35 MPV 8.6 fl (7.5-11.1) 05/01/18 07:35 Absolute Neuts (auto) 2.1 K/mm3 (1.5-8.0) 05/01/18 07:35 Neutrophils % 49.3 % (42.8-82.8) 05/01/18 07:35 Lymphocytes % 34.0 % (8-40) 05/01/18 07:35 Monocytes % 14.9 % (3.8-10.2) H 05/01/18 07:35 Eosinophils % 1.4 % (0-4.5) 05/01/18 07:35 Basophils % 0.4 % (0-2.0) 05/01/18 07:35 Nucleated RBC % 0 % (0-0) 05/01/18 07:35 PT with INR 18.60 SEC (9.7-13.0) H 05/01/18 07:35 INR 1.57 (0.83-1.09) H 05/01/18 07:35 PTT (Actin FS) 34.8 SECONDS (25.2-36.5) 05/01/18 07:35 Sodium 139 mmol/L (136-145) 05/01/18 07:35 Potassium 4.3 mmol/L (3.5-5.1) 05/01/18 07:35 Chloride 105 mmol/L (98-107) 05/01/18 07:35 Carbon Dioxide 25 mmol/L (21-32) 05/01/18 07:35 Anion Gap 10 MMOL/L (8-16) 05/01/18 07:35 BUN 27 mg/dL (7-18) H 05/01/18 07:35 Creatinine 0.8 mg/dL (0.55-1.3) 05/01/18 07:35 Creat Clearance w eGFR > 60 (>60) 05/01/18 07:35 Random Glucose 103 mg/dL (74-106) 05/01/18 07:35 Calcium 8.0 mg/dL (8.5-10.1) L 05/01/18 07:35 Total Bilirubin 0.2 mg/dL (0.2-1) 05/01/18 07:35 AST 22 U/L (15-37) 05/01/18 07:35 ALT 33 U/L (13-61) 05/01/18 07:35 Alkaline Phosphatase 77 U/L (45-117) 05/01/18 07:35 Total Protein 7.5 g/dl (6.4-8.2) 05/01/18 07:35 Albumin 3.4 g/dl (3.4-5.0) 05/01/18 07:35 Urine Color Torri 05/01/18 08:30 Urine Appearance Turbid 05/01/18 08:30 Urine pH 5.0 (5.0-8.0) 05/01/18 08:30 Ur Specific [place] 1.023 (1.010-1.035) 05/01/18 08:30 Urine Protein Negative (NEGATIVE) 05/01/18 08:30 Urine Glucose (UA) Negative (NEGATIVE) 05/01/18 08:30 Urine Ketones Negative (NEGATIVE) 05/01/18 08:30 Urine Blood Negative (NEGATIVE) 05/01/18 08:30 Urine Nitrite Negative (NEGATIVE) 05/01/18 08:30 Urine Bilirubin Negative (<2.0 mg/dL) 05/01/18 08:30 Urine Urobilinogen Negative mg/dL (0.2-1.0) 05/01/18 08:30 Ur Leukocyte Esterase Negative (NEGATIVE) 05/01/18 08:30 RPR Titer Nonreactive (NONREACTIVE) 05/01/18 07:35 lab noted Assessment: 05/01/18 12:46 withdrawal sx history of blood clot taking coumadin 05/01/18 12:48 seizure taking keppra Plan: continue detox call [phone] for last fill coumadin and keppra no anxwer will try Wednesday continue coumadin 8 mg begin [id number] mg bid
[2018-05-01] MEDS: CYCLOBENZAPRINE HCL 10 MG TABLET (FP) PO SCH ×2 (13:26→22:03)
[2018-05-01] MEDS: levETIRAcetam 500 MG TABLET (FP) PO SCH ×2 (13:27→22:03)
--- NOTE | 2018-05-01 13:49 | EKG ---
Test Reason : Blood Pressure : / mmHG Vent. Rate : 087 BPM Atrial Rate : 087 BPM P-R Int : 154 ms QRS Dur : 080 ms QT Int : 346 ms P-R-T Axes : 071 064 040 degrees QTc Int : 416 ms POOR DATA QUALITY, INTERPRETATION MAY BE ADVERSELY AFFECTED NORMAL SINUS RHYTHM NORMAL ECG WHEN COMPARED WITH ECG OF 22-DEC-2017 02:21, NO SIGNIFICANT CHANGE WAS FOUND Confirmed by MD Cony, Elias ([id number]) on 05/01/2018 1:48:55 PM Referred By: Confirmed By:Elias Donnelly MD
[2018-05-01] MEDS: RANITIDINE HCL 150 MG TABLET (FP) PO SCH ×2 (14:20→22:03)
[2018-05-01] MEDS: WARFARIN NA 5 MG, WARFARIN NA 3 MG PO SCH (17:06)
[2018-05-01] MEDS ORDERED: PATIENT'S OWN MEDICATION (NON-FORMULARY) (Warfarin Sodium [Coumadin] 8 MG) PO SCH (22:00)
[2018-05-01] MEDS ORDERED: MINERAL OIL/PETROLAT/WATER TOPICAL CREAM 113 GM JAR TP SCH (22:00)
[2018-05-01] MEDS ORDERED: CLOTRIMAZOLE 1% CREAM 15 GM TUBE TP SCH (22:00)
[2018-05-01] MEDS: QUEtiapine FUMARATE 100 MG TABLET (FP) PO SCH (22:03)
[2018-05-01] MEDS: THIAMINE HCL 100 MG TABLET (FP) PO SCH (22:45)
[2018-05-02] MEDS: diazePAM 5 MG TABLET PO PRN ×5 (01:37→23:57)
[2018-05-02] MEDS: cloNIDine HCL 0.1 MG TABLET PO SCH ×3 (05:41→21:22)
[2018-05-02] MEDS: CYCLOBENZAPRINE HCL 10 MG TABLET (FP) PO SCH ×3 (05:41→21:22)
[2018-05-02] MEDS: ACETAMINOPHEN 325 MG TABLET (FP) PO PRN (08:58)
[2018-05-02] MEDS: RANITIDINE HCL 150 MG TABLET (FP) PO SCH ×2 (10:13→21:21)
[2018-05-02] MEDS: levETIRAcetam 500 MG TABLET (FP) PO SCH ×2 (10:13→21:21)
[2018-05-02] MEDS: PRENATAL VITAMINS W/ FOLIC ACID TABLET (FP) PO SCH (10:13)
[2018-05-02] MEDS: GABAPENTIN 400 MG CAPSULE (FP) PO SCH ×4 (10:13→22:50)
[2018-05-02] MEDS: diazePAM 5 MG TABLET PO SCH ×2 (10:14→21:20)
[2018-05-02] MEDS: METHADONE HCL 5 MG TABLET (FOR DETOX USE ONLY) PO SCH (10:14)
[2018-05-02] MEDS: QUEtiapine FUMARATE 100 MG TABLET (FP) PO SCH ×2 (10:14→21:21)
--- NOTE | 2018-05-02 11:17 | PN ---
[facility] CIWA - CIWA Score Nausea/Vomitin-No Nausea/No Vomiting Muscle Tremors: 3 Anxiety: 2 Agitation: 3 Paroxysmal Sweats: 1-Minimal Palms Moist Orientation: 0-Oriented Tacttile Disturbances: 0-None Auditory Disturbances: 0-None Visual Disturbances: 0-None Headache: 1-Very Mild CIWA-Ar Total Score: 10 BHS COWS - Scale Resting Pulse: 1= [place] 81-100 Sweatin= Chills/Flushing Restless Observation: 1= Difficult to Sit Still Pupil Size: 0= Normal to Room Light Bone or Joint Aches: 2= Severe Diffuse Aches Runny Nose/ Eye Tearin= Nasal Congestion GI Upset > 30mins: 1= Stomach Cramp Tremor Observation of Outstretched Hands: 1= Tremor [place], Not Seen Yawning Observation: 1= 1-2x During Session Anxiety or Irritability: 1=Feels Anxious/Irritable Goose Flesh Skin: 0=Smooth Skin COWS Score: 10 [facility] Progress Note (SOAP) Subjective: body aches muscle cramping sweat tremor anxiety Objective: 05/02/18 14:15 Vital Signs Temperature 97.3 F L 05/02/18 13:05 Pulse Rate 94 H 05/02/18 13:05 Respiratory Rate 16 05/02/18 13:05 Blood Pressure 133/74 05/02/18 13:05 O2 Sat by Pulse Oximetry (%) Laboratory Last Values WBC 4.2 K/mm3 (4.0-10.0) 05/01/18 07:35 RBC 3.98 M/mm3 (4.00-5.60) L 05/01/18 07:35 Hgb 11.5 GM/dL (11.7-16.9) L 05/01/18 07:35 Hct 35.9 % (35.4-49) 05/01/18 07:35 MCV 90.2 fl (80-96) 05/01/18 07:35 MCH 29.0 pg (25.7-33.7) 05/01/18 07:35 MCHC 32.1 g/dl (32.0-35.9) 05/01/18 07:35 RDW 15.6 % (11.9-15.9) 05/01/18 07:35 Plt Count 207 K/MM3 (134-434) 05/01/18 07:35 MPV 8.6 fl (7.5-11.1) 05/01/18 07:35 Absolute Neuts (auto) 2.1 K/mm3 (1.5-8.0) 05/01/18 07:35 Neutrophils % 49.3 % (42.8-82.8) 05/01/18 07:35 Lymphocytes % 34.0 % (8-40) 05/01/18 07:35 Monocytes % 14.9 % (3.8-10.2) H 05/01/18 07:35 Eosinophils % 1.4 % (0-4.5) 05/01/18 07:35 Basophils % 0.4 % (0-2.0) 05/01/18 07:35 Nucleated RBC % 0 % (0-0) 05/01/18 07:35 PT with INR 18.60 SEC (9.7-13.0) H 05/01/18 07:35 INR 1.57 (0.83-1.09) H 05/01/18 07:35 PTT (Actin FS) 34.8 SECONDS (25.2-36.5) 05/01/18 07:35 Sodium 139 mmol/L (136-145) 05/01/18 07:35 Potassium 4.3 mmol/L (3.5-5.1) 05/01/18 07:35 Chloride 105 mmol/L (98-107) 05/01/18 07:35 Carbon Dioxide 25 mmol/L (21-32) 05/01/18 07:35 Anion Gap 10 MMOL/L (8-16) 05/01/18 07:35 BUN 27 mg/dL (7-18) H 05/01/18 07:35 Creatinine 0.8 mg/dL (0.55-1.3) 05/01/18 07:35 Creat Clearance w eGFR > 60 (>60) 05/01/18 07:35 Random Glucose 103 mg/dL (74-106) 05/01/18 07:35 Calcium 8.0 mg/dL (8.5-10.1) L 05/01/18 07:35 Total Bilirubin 0.2 mg/dL (0.2-1) 05/01/18 07:35 AST 22 U/L (15-37) 05/01/18 07:35 ALT 33 U/L (13-61) 05/01/18 07:35 Alkaline Phosphatase 77 U/L (45-117) 05/01/18 07:35 Total Protein 7.5 g/dl (6.4-8.2) 05/01/18 07:35 Albumin 3.4 g/dl (3.4-5.0) 05/01/18 07:35 Urine Color Torri 05/01/18 08:30 Urine Appearance Turbid 05/01/18 08:30 Urine pH 5.0 (5.0-8.0) 05/01/18 08:30 Ur Specific [place] 1.023 (1.010-1.035) 05/01/18 08:30 Urine Protein Negative (NEGATIVE) 05/01/18 08:30 Urine Glucose (UA) Negative (NEGATIVE) 05/01/18 08:30 Urine Ketones Negative (NEGATIVE) 05/01/18 08:30 Urine Blood Negative (NEGATIVE) 05/01/18 08:30 Urine Nitrite Negative (NEGATIVE) 05/01/18 08:30 Urine Bilirubin Negative (<2.0 mg/dL) 05/01/18 08:30 Urine Urobilinogen Negative mg/dL (0.2-1.0) 05/01/18 08:30 Ur Leukocyte Esterase Negative (NEGATIVE) 05/01/18 08:30 RPR Titer Nonreactive (NONREACTIVE) 05/01/18 07:35 lab noted repeat inr pending 05/02/18 14:17 Assessment: 05/02/18 14:17 withdrawal sx 05/02/18 14:17 coumadin 8 mg po daily Plan: continue detox waiting for inr
[2018-05-02] MEDS ORDERED: MINERAL OIL/PETROLAT/WATER TOPICAL CREAM 113 GM JAR TP PRN (12:23)
[2018-05-02] MEDS ORDERED: CLOTRIMAZOLE 1% CREAM 15 GM TUBE TP PRN (12:23)
--- NOTE | 2018-05-02 12:28 | CONSULT ---
[facility] Psychiatric Consult - Data Date of interview: 05/02/18 Admission source: [facility] Identifying data: This is a 47 years old male, single, father of one, living alone, obese,unemployed, on SSI, SSD, Pension, with psychiatric hospitalization history, history of BipolrDisorder, reports Heroin, Xanax, Alcohol dependency, history of PCP abuse, reprting withdrawal symptoms and seeking detox. Substance Abuse History: Smoking history: Former smoker. Have you smoked in the past 12 months: No. Aproximately how many cigarettes per day: 20. If you are a former smoker, when did you quit?: 2016. Cigars Per Day: 0. Hx Chewing Tobacco Use: No. Initiated information on smoking cessation: No. 'Breaking Loose' booklet given: 04/30/18. - Substance & Tx. History. Hx Alcohol Use: Yes. Hx Substance Use: Yes. Substance Use Type: Alcohol, Heroin, Tranquilizers. Hx Substance Use Treatment: Yes. - Substances Abused. Alcohol. Route: Oral. Frequency: Daily. Amount used: liquor- 4 pints. Age of first use: 20. Date of Last Use: 04/28/18. Heroin. Route: Injection. Frequency: Daily. Amount used: 30 bags. Age of first use: 17. Date of Last Use: 04/28/18. Alprazolam (Xanax). Route: Oral. Frequency: Daily. Amount used: 16mg. Age of first use: 37. Date of Last Use: 04/28/18 Medical History: PE history, DVT, GERD, Obesity, HTN, Psychiatric History: PATIENT REPORTS HISTORY OF bIPOLAR DIASORDER WITH ONLY UNCLEAR [id number] ADMISSION AT [facility], REPORTS CURRENTLY ON: SEROQUEL 100MG PO QHS. GABAPENTIN 800MG PO BID. DENIES SUICIDAL, HOMICIDAL HISTORY. Physical/Sexual Abuse/Trauma History: Denies Additional Comment: SEROQUEL 100MG PO QHS. GABAPENTIN 800MG PO BID Mental Status Exam - Mental Status Exam Alert and Oriented to: Person Cognitive Function: Fair, Good Patient Appearance: Well Groomed Mood: Anxious, Irritable Affect: Mood Congruent Patient Behavior: Guarded, Cooperative Speech Pattern: Appropriate Voice Loudness: Moderately Loud Thought Process: Goal Oriented Thought Disorder: Being Controlled Hallucinations: Denies Suicidal Ideation: Denies Homicidal Ideation: Denies Sleep: Difficulty falling asleep Appetite: Weight gain Muscle strength/Tone: Normal Gait/Station: Normal Additional Comments: SEROQUEL 100MG PO QHS. GABAPENTIN 800MG PO BID Psychiatric Findings - Problem List ([place] 1, 2,3) (1) Alcohol dependence with uncomplicated withdrawal Current Visit: Yes Status: Chronic (2) Anxiety disorder Current Visit: Yes Status: Chronic Qualifiers: Anxiety disorder type: unspecified anxiety disorder Qualified Code(s): F41.9 - Anxiety disorder, unspecified (3) Benzodiazepine dependence Current Visit: Yes Status: Chronic (4) Bipolar disorder Current Visit: Yes Status: Chronic Qualifiers: Active/Remission status: currently active Current bipolar episode type: depressed Current episode severity: unspecified Qualified Code(s): F31.30 - Bipolar disorder, current episode depressed, mild or moderate severity, unspecified (5) Opioid dependence Current Visit: Yes Status: Chronic (6) Alcohol dependence Current Visit: No Status: Acute (7) Drug-induced mood disorder Current Visit: No Status: Acute (8) Substance-induced sleep disorder Current Visit: No Status: Acute (9) Cocaine dependence Current Visit: No Status: Chronic Qualifiers: Substance use status: uncomplicated Qualified Code(s): F14.20 - Cocaine dependence, uncomplicated (10) DVT (deep venous thrombosis) Current Visit: No Status: Chronic Qualifiers: DVT location: lower extremity Affected thrombotic vein of extremity: unspecified vein of extremity Chronicity: unspecified Laterality: unspecified laterality Qualified Code(s): I82.409 - Acute embolism and thrombosis of unspecified deep veins of unspecified lower extremity (11) GERD (gastroesophageal reflux disease) Current Visit: No Status: Chronic Qualifiers: Esophagitis presence: without esophagitis Qualified Code(s): K21.9 - Gastro -esophageal reflux disease without esophagitis (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
[2018-05-02 14:42] LABS: INR 1.41 (0.83-1.09); PROTHROMBIN TIME (PATIENT) 16.7 SEC (9.7-13.0)
[2018-05-02] MEDS: WARFARIN NA 5 MG, WARFARIN NA 3 MG PO SCH (17:23)
[2018-05-02] MEDS: THIAMINE HCL 100 MG TABLET (FP) PO SCH (21:22)
[2018-05-03] MEDS: cloNIDine HCL 0.1 MG TABLET PO SCH ×3 (05:44→22:26)
[2018-05-03] MEDS: CYCLOBENZAPRINE HCL 10 MG TABLET (FP) PO SCH (05:45)
[2018-05-03] MEDS: diazePAM 5 MG TABLET PO PRN ×4 (05:47→20:36)
[2018-05-03] MEDS ORDERED: WARFARIN NA 5 MG TABLET (UD) PO SCH (10:00)
[2018-05-03] MEDS: RANITIDINE HCL 150 MG TABLET (FP) PO SCH ×2 (10:16→22:25)
[2018-05-03] MEDS: GABAPENTIN 400 MG CAPSULE (FP) PO SCH ×3 (10:16→22:25)
[2018-05-03] MEDS: diazePAM 5 MG TABLET PO SCH ×2 (10:16→22:25)
[2018-05-03] MEDS: METHADONE HCL 5 MG TABLET (FOR DETOX USE ONLY) PO SCH (10:16)
[2018-05-03] MEDS: levETIRAcetam 500 MG TABLET (FP) PO SCH ×2 (10:16→22:26)
[2018-05-03] MEDS: PRENATAL VITAMINS W/ FOLIC ACID TABLET (FP) PO SCH (10:19)
[2018-05-03] MEDS: COLLOIDAL OATMEAL 1 BAR EACH TP PRN (12:12)
--- NOTE | 2018-05-03 13:54 | PN ---
S Progress Note (SOAP) Subjective: patient reported that he is on coumadin x 17+ years never go places without coumadin, patient stated that he goes to coumadin clinic around the [facility], patient forbidden the clinical writer to call his primary care provider Walter Saenz who the patient follow up for little more than a year, last visited 03/05/18 received one month prescription filled, patient went to [facility] and received two weeks to one month coumadin prescription, encourage the patient to fetch coumadin bottle from his property. patient stated that he is feeling better today less tremor mild body aches trouble sleep at night Objective: 05/03/18 14:48 Vital Signs Temperature 97.3 F L 05/03/18 14:04 Pulse Rate 98 H 05/03/18 14:04 Respiratory Rate 20 05/03/18 14:04 Blood Pressure 135/74 05/03/18 14:04 O2 Sat by Pulse Oximetry (%) Laboratory Last Values WBC 4.2 K/mm3 (4.0-10.0) 05/01/18 07:35 RBC 3.98 M/mm3 (4.00-5.60) L 05/01/18 07:35 Hgb 11.5 GM/dL (11.7-16.9) L 05/01/18 07:35 Hct 35.9 % (35.4-49) 05/01/18 07:35 MCV 90.2 fl (80-96) 05/01/18 07:35 MCH 29.0 pg (25.7-33.7) 05/01/18 07:35 MCHC 32.1 g/dl (32.0-35.9) 05/01/18 07:35 RDW 15.6 % (11.9-15.9) 05/01/18 07:35 Plt Count 207 K/MM3 (134-434) 05/01/18 07:35 MPV 8.6 fl (7.5-11.1) 05/01/18 07:35 Absolute Neuts (auto) 2.1 K/mm3 (1.5-8.0) 05/01/18 07:35 Neutrophils % 49.3 % (42.8-82.8) 05/01/18 07:35 Lymphocytes % 34.0 % (8-40) 05/01/18 07:35 Monocytes % 14.9 % (3.8-10.2) H 05/01/18 07:35 Eosinophils % 1.4 % (0-4.5) 05/01/18 07:35 Basophils % 0.4 % (0-2.0) 05/01/18 07:35 Nucleated RBC % 0 % (0-0) 05/01/18 07:35 PT with INR 18.80 SEC (9.7-13.0) H 05/03/18 11:00 INR 1.59 (0.83-1.09) H 05/03/18 11:00 PTT (Actin FS) 34.8 SECONDS (25.2-36.5) 05/01/18 07:35 Sodium 139 mmol/L (136-145) 05/01/18 07:35 Potassium 4.3 mmol/L (3.5-5.1) 05/01/18 07:35 Chloride 105 mmol/L (98-107) 05/01/18 07:35 Carbon Dioxide 25 mmol/L (21-32) 05/01/18 07:35 Anion Gap 10 MMOL/L (8-16) 05/01/18 07:35 BUN 27 mg/dL (7-18) H 05/01/18 07:35 Creatinine 0.8 mg/dL (0.55-1.3) 05/01/18 07:35 Creat Clearance w eGFR > 60 (>60) 05/01/18 07:35 Random Glucose 103 mg/dL (74-106) 05/01/18 07:35 Calcium 8.0 mg/dL (8.5-10.1) L 05/01/18 07:35 Total Bilirubin 0.2 mg/dL (0.2-1) 05/01/18 07:35 AST 22 U/L (15-37) 05/01/18 07:35 ALT 33 U/L (13-61) 05/01/18 07:35 Alkaline Phosphatase 77 U/L (45-117) 05/01/18 07:35 Total Protein 7.5 g/dl (6.4-8.2) 05/01/18 07:35 Albumin 3.4 g/dl (3.4-5.0) 05/01/18 07:35 Urine Color Torri 05/01/18 08:30 Urine Appearance Turbid 05/01/18 08:30 Urine pH 5.0 (5.0-8.0) 05/01/18 08:30 Ur Specific [place] 1.023 (1.010-1.035) 05/01/18 08:30 Urine Protein Negative (NEGATIVE) 05/01/18 08:30 Urine Glucose (UA) Negative (NEGATIVE) 05/01/18 08:30 Urine Ketones Negative (NEGATIVE) 05/01/18 08:30 Urine Blood Negative (NEGATIVE) 05/01/18 08:30 Urine Nitrite Negative (NEGATIVE) 05/01/18 08:30 Urine Bilirubin Negative (<2.0 mg/dL) 05/01/18 08:30 Urine Urobilinogen Negative mg/dL (0.2-1.0) 05/01/18 08:30 Ur Leukocyte Esterase Negative (NEGATIVE) 05/01/18 08:30 RPR Titer Nonreactive (NONREACTIVE) 05/01/18 07:35 lab noted Assessment: 05/03/18 14:49 withdrawal sx Plan: continue detox
[2018-05-03 14:43] LABS: INR 1.59 (0.83-1.09); PROTHROMBIN TIME (PATIENT) 18.8 SEC (9.7-13.0)
[2018-05-03] MEDS ORDERED: WARFARIN NA PO SCH (18:00)
[2018-05-03] MEDS: THIAMINE HCL 100 MG TABLET (FP) PO SCH (22:25)
[2018-05-03] MEDS: QUEtiapine FUMARATE 100 MG TABLET (FP) PO SCH (22:37)
[2018-05-04] MEDS: cloNIDine HCL 0.1 MG TABLET PO SCH (05:49)
[2018-05-04 06:35] VITALS: TEMP 97.5
[2018-05-04 09:33] VITALS: BP 124/71; PULSE 95
[2018-05-04] MEDS ORDERED: diazePAM 5 MG TABLET PO SCH (10:00)
[2018-05-04] MEDS ORDERED: METHADONE HCL 10 MG TABLET (FOR DETOX USE ONLY) PO SCH (10:00)
[2018-05-04 10:13] LABS: INR 1.95 (0.83-1.09); PROTHROMBIN TIME (PATIENT) 23.2 SEC (9.7-13.0)
[2018-05-04] MEDS: GABAPENTIN 400 MG CAPSULE (FP) PO SCH (10:44)
[2018-05-04] MEDS: levETIRAcetam 500 MG TABLET (FP) PO SCH (10:44)
[2018-05-04] MEDS: RANITIDINE HCL 150 MG TABLET (FP) PO SCH (10:45)
[2018-05-04] MEDS: PRENATAL VITAMINS W/ FOLIC ACID TABLET (FP) PO SCH (10:48)
[2018-05-04] MEDS ORDERED: WARFARIN NA 7.5 MG TABLET (FP) PO SCH (10:52)
--- NOTE | 2018-05-04 10:54 | DS ---
[facility] Detox Discharge Summary Admission Date: 04/30/18 Discharge Date: 05/04/18 - History Present History: Alcohol Dependence, Opioid Dependence, Sedative Dependence Additional Comments: 47 years old male admitted on 04/30/18 for alcohol benzo and opiate withdrawal sx patient prefers to go to rehab today that feeling better denies alcohol benzo opiate withdrawal sx aftercare [facility] patient agrees to return to doctor Dany Watson for coumadin that he has a bottle of coumadin in his property from [facility] patient reported that he takes coumadin over the past 17 years and knows where tcoumadin clinics are and has no problem utilize coumadin clinic in the [facility] patient stated that he has seizure medication keppra and coumadin patient wants to return to his own Dr. Saenz who he trust the most patient is alert oriented x 3 no acute distress denies suicidal ideation denies homocidal ideation no self destructive behavior respect patient's preference and value that patient wants to begin chemical rehab today Pertinent Past History: a copy of lab result provided the the patient and explained to the patient that INR needed to be up to therapeutic leel patient agrees to return to Dr. Saenz continue monitoring INR patient wants to go to [facility] as per counselor arranged, patient wants to go home "I [place] an apartment [place] the city" "i am not homeless," patient agrees to go to [facility] for aftercare - Physical Exam Results Vital Signs: Vital Signs Temperature 97.5 F L 05/04/18 09:33 Pulse Rate 95 H 05/04/18 09:33 Respiratory Rate 16 05/04/18 09:33 Blood Pressure 124/71 05/04/18 09:33 O2 Sat by Pulse Oximetry (%) Pertinent Admission Physical Exam Findings: alcohol benzo and opiate withdrawal sx Vital Signs Temperature 97.5 F L 05/04/18 09:33 Pulse Rate 95 H 05/04/18 09:33 Respiratory Rate 16 05/04/18 09:33 Blood Pressure 124/71 05/04/18 09:33 O2 Sat by Pulse Oximetry (%) Laboratory Last Values WBC 4.2 K/mm3 (4.0-10.0) 05/01/18 07:35 RBC 3.98 M/mm3 (4.00-5.60) L 05/01/18 07:35 Hgb 11.5 GM/dL (11.7-16.9) L 05/01/18 07:35 Hct 35.9 % (35.4-49) 05/01/18 07:35 MCV 90.2 fl (80-96) 05/01/18 07:35 MCH 29.0 pg (25.7-33.7) 05/01/18 07:35 MCHC 32.1 g/dl (32.0-35.9) 05/01/18 07:35 RDW 15.6 % (11.9-15.9) 05/01/18 07:35 Plt Count 207 K/MM3 (134-434) 05/01/18 07:35 MPV 8.6 fl (7.5-11.1) 05/01/18 07:35 Absolute Neuts (auto) 2.1 K/mm3 (1.5-8.0) 05/01/18 07:35 Neutrophils % 49.3 % (42.8-82.8) 05/01/18 07:35 Lymphocytes % 34.0 % (8-40) 05/01/18 07:35 Monocytes % 14.9 % (3.8-10.2) H 05/01/18 07:35 Eosinophils % 1.4 % (0-4.5) 05/01/18 07:35 Basophils % 0.4 % (0-2.0) 05/01/18 07:35 Nucleated RBC % 0 % (0-0) 05/01/18 07:35 PT with INR 23.20 SEC (9.7-13.0) H 05/04/18 07:00 INR 1.95 (0.83-1.09) H 05/04/18 07:00 PTT (Actin FS) 34.8 SECONDS (25.2-36.5) 05/01/18 07:35 Sodium 139 mmol/L (136-145) 05/01/18 07:35 Potassium 4.3 mmol/L (3.5-5.1) 05/01/18 07:35 Chloride 105 mmol/L (98-107) 05/01/18 07:35 Carbon Dioxide 25 mmol/L (21-32) 05/01/18 07:35 Anion Gap 10 MMOL/L (8-16) 05/01/18 07:35 BUN 27 mg/dL (7-18) H 05/01/18 07:35 Creatinine 0.8 mg/dL (0.55-1.3) 05/01/18 07:35 Creat Clearance w eGFR > 60 (>60) 05/01/18 07:35 Random Glucose 103 mg/dL (74-106) 05/01/18 07:35 Calcium 8.0 mg/dL (8.5-10.1) L 05/01/18 07:35 Total Bilirubin 0.2 mg/dL (0.2-1) 05/01/18 07:35 AST 22 U/L (15-37) 05/01/18 07:35 ALT 33 U/L (13-61) 05/01/18 07:35 Alkaline Phosphatase 77 U/L (45-117) 05/01/18 07:35 Total Protein 7.5 g/dl (6.4-8.2) 05/01/18 07:35 Albumin 3.4 g/dl (3.4-5.0) 05/01/18 07:35 Urine Color Torri 05/01/18 08:30 Urine Appearance Turbid 05/01/18 08:30 Urine pH 5.0 (5.0-8.0) 05/01/18 08:30 Ur Specific [place] 1.023 (1.010-1.035) 05/01/18 08:30 Urine Protein Negative (NEGATIVE) 05/01/18 08:30 Urine Glucose (UA) Negative (NEGATIVE) 05/01/18 08:30 Urine Ketones Negative (NEGATIVE) 05/01/18 08:30 Urine Blood Negative (NEGATIVE) 05/01/18 08:30 Urine Nitrite Negative (NEGATIVE) 05/01/18 08:30 Urine Bilirubin Negative (<2.0 mg/dL) 05/01/18 08:30 Urine Urobilinogen Negative mg/dL (0.2-1.0) 05/01/18 08:30 Ur Leukocyte Esterase Negative (NEGATIVE) 05/01/18 08:30 RPR Titer Nonreactive (NONREACTIVE) 05/01/18 07:35 lab noted patient acknowledged therapeutic INR patient wants to return to Dr. Saenz for coumadin follow up and keppra and clonidine prescription \\ - Treatment Hospital Course: Detox Protocol Followed, Detoxed Safely, Responded well, Discharged Condition Good, Rehab Referral Accepted Patient has Accepted a Rehab Referral to: [facility] - Medication Discharge Medications: Ambulatory Orders Warfarin Sodium [Coumadin] 8 mg PO HS 10/08/17 Clonidine HCl [Catapres] 0.1 mg PO TID 10/09/17 Quetiapine Fumarate [Seroquel] 100 mg PO HS #30 tablet 12/24/17 levETIRAcetam [Keppra -] 500 mg PO BID 05/01/18 Gabapentin 800 mg PO BID #60 tablet 05/02/18 Quetiapine Fumarate [Seroquel] 100 mg PO HS #30 tablet 05/02/18 - Diagnosis (1) Alcohol dependence with uncomplicated withdrawal Status: Acute (2) Benzodiazepine dependence Status: Acute (3) HTN (hypertension) Status: Chronic Qualifiers: Hypertension type: essential hypertension (4) Nicotine dependence Status: Acute Qualifiers: Nicotine product type: cigarettes Substance use status: in withdrawal Qualified Code(s): F17.213 - Nicotine dependence, cigarettes, with withdrawal (5) Opioid dependence with withdrawal Status: Acute (6) Pulmonary embolism Status: Chronic Qualifiers: Pulmonary embolism type: other Chronicity: unspecified - AMA Did Patient Leave Against Medical Advice: No
[2018-05-05] MEDS ORDERED: METHADONE HCL 5 MG TABLET (FOR DETOX USE ONLY) PO SCH (06:00)
== END 2018-05-04 11:16 | disposition home or self-care (01) | DRG 897 ==
LOC: YASAS 21:28 → Y6N 22:24
PROC: HZ2ZZZZ Detoxification Services for Substance Abuse Treatment (ICD-10-PCS; principal; 2018-04-30)
DX: F11.23 Opioid dependence with withdrawal (principal); F13.20 Sedative, hypnotic or anxiolytic dependence, uncomplicated; F31.30 Bipolar disorder, current episode depressed, mild or moderate severity, unspecified; F19.282 Other psychoactive substance dependence with psychoactive substance-induced sleep disorder; I82.409 Acute embolism and thrombosis of unspecified deep veins of unspecified lower extremity; Z68.41 Body mass index [BMI] 40.0-44.9, adult; F10.230 Alcohol dependence with withdrawal, uncomplicated; F16.10 Hallucinogen abuse, uncomplicated; F17.213 Nicotine dependence, cigarettes, with withdrawal; F41.9 Anxiety disorder, unspecified; F19.24 Other psychoactive substance dependence with psychoactive substance-induced mood disorder; I10 Essential (primary) hypertension; K21.9 Gastro-esophageal reflux disease without esophagitis; G40.909 Epilepsy, unspecified, not intractable, without status epilepticus; E66.9 Obesity, unspecified; Z95.828 Presence of other vascular implants and grafts; Z79.01 Long term (current) use of anticoagulants; Z86.711 Personal history of pulmonary embolism; Z86.69 Personal history of other diseases of the nervous system and sense organs
CPT/HCPCS: 36415; 80053; 81003; 85025; 85610; 85730; 86593; 93005; 93010; J0735

== ENCOUNTER 2018-07-03 11:03 | Inpatient (IN) | payer OTHER ==
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
[2018-07-03 11:29] VITALS: BMI 38.9
[2018-07-03] MEDS ORDERED: LOPERAMIDE HCL 2 MG CAPSULE PO PRN (13:35)
[2018-07-03] MEDS ORDERED: MAGNESIUM HYDROX 2400MG/30ML ORAL SUSPENSION 30 ML CUP PO PRN (13:35)
[2018-07-03] MEDS ORDERED: MAG HYDROX/AL HYDROX/SIMETH 30 ML UNIT-DOSE CUP PO PRN (13:35)
[2018-07-03] MEDS ORDERED: IBUPROFEN 400 MG TABLET (FP) PO PRN (13:35)
[2018-07-03] MEDS ORDERED: MAGNESIUM CITRATE 300 ML BOTTLE PO PRN (13:35)
[2018-07-03] MEDS ORDERED: diazePAM 5 MG TABLET PO ONE (13:35)
[2018-07-03] MEDS ORDERED: MENTHOL/PHENOL 1 EACH UD MM PRN (13:35)
[2018-07-03] MEDS ORDERED: METHADONE HCL 10 MG TABLET (FOR DETOX USE ONLY) PO ONE ×2 (13:35→23:00)
[2018-07-03] MEDS ORDERED: ACETAMINOPHEN 325 MG TABLET (FP) PO PRN (13:35)
[2018-07-03] MEDS ORDERED: NICOTINE POLACRILEX 2 MG GUM BUC PRN (13:35)
[2018-07-03] MEDS ORDERED: guaiFENesin 200 MG/10 ML 10 ML UNIT-DOSE CUPS PO PRN (13:42)
[2018-07-03] MEDS ORDERED: PSEUDOEPHEDRINE HCL 60 MG TABLET PO PRN (14:24)
[2018-07-03 16:37] LABS: URINE APPEARANCE CLEAR; URINE BILIRUBIN NEGATIVE (<2.0 mg/dL); URINE COLOR YELLOW; URINE GLUCOSE (UA) NEGATIVE (NEGATIVE); URINE KETONE NEGATIVE (NEGATIVE); URINE LEUK ESTERASE NEGATIVE (NEGATIVE); URINE NITRITE NEGATIVE (NEGATIVE); URINE PROTEIN 1+ (NEGATIVE)
[2018-07-03 16:56] LABS: EPI CELLS RARE /HPF (FEW); URINE MUCUS MANY
[2018-07-03] MEDS ORDERED: COLLOIDAL OATMEAL 1 BAR EACH TP PRN (17:44)
[2018-07-03] MEDS ORDERED: WARFARIN NA 2 MG TABLET (UD) PO SCH (18:00)
[2018-07-03] MEDS ORDERED: MELATONIN 5 MG TABLETS PO PRN (22:00)
[2018-07-03] MEDS ORDERED: THIAMINE HCL 100 MG TABLET (FP) PO SCH (22:00)
[2018-07-03] MEDS: diazePAM 5 MG TABLET PO SCH (22:35)
[2018-07-03] MEDS: cloNIDine HCL 0.1 MG TABLET PO SCH (22:36)
[2018-07-04] MEDS: diazePAM 5 MG TABLET PO PRN ×3 (00:58→11:29)
[2018-07-04] MEDS: diazePAM 5 MG TABLET PO SCH ×2 (05:09→14:19)
[2018-07-04] MEDS: cloNIDine HCL 0.1 MG TABLET PO SCH ×2 (05:09→14:19)
[2018-07-04] MEDS ORDERED: PRENATAL VITAMINS W/ FOLIC ACID TABLET (FP) PO SCH (10:00)
[2018-07-04] MEDS ORDERED: METHADONE HCL 10 MG TABLET (FOR DETOX USE ONLY) PO SCH (10:00)
--- NOTE | 2018-07-04 10:13 | PN ---
[facility] CIWA - CIWA Score Nausea/Vomitin-No Nausea/No Vomiting Muscle Tremors: 3 Anxiety: 2 Agitation: 2 Paroxysmal Sweats: 1-Minimal Palms Moist Orientation: 0-Oriented Tacttile Disturbances: 0-None Auditory Disturbances: 0-None Visual Disturbances: 0-None Headache: 1-Very Mild CIWA-Ar Total Score: 9 [facility] COWS - Scale Resting Pulse: 0= [place] 80 or Below Sweatin= Chills/Flushing Restless Observation: 1= Difficult to Sit Still Pupil Size: 0= Normal to Room Light Bone or Joint Aches: 2= Severe Diffuse Aches Runny Nose/ Eye Tearin= Nasal Congestion GI Upset > 30mins: 1= Stomach Cramp Tremor Observation of Outstretched Hands: 1= Tremor [place], Not Seen Yawning Observation: 1= 1-2x During Session Anxiety or Irritability: 1=Feels Anxious/Irritable Goose Flesh Skin: 0=Smooth Skin COWS Score: 9 [facility] Progress Note (SOAP) Subjective: reported mild body ache and GI distress otherwise feeling fine Objective: 07/04/18 11:51 Vital Signs Temperature 97.0 F L 07/04/18 09:17 Pulse Rate 105 H 07/04/18 09:17 Respiratory Rate 18 07/04/18 09:17 Blood Pressure 137/79 07/04/18 09:17 O2 Sat by Pulse Oximetry (%) Laboratory Last Values WBC 3.2 K/mm3 (4.0-10.0) L 07/04/18 07:30 RBC 4.50 M/mm3 (4.00-5.60) 07/04/18 07:30 Hgb 13.1 GM/dL (11.7-16.9) 07/04/18 07:30 Hct 41.0 % (35.4-49) 07/04/18 07:30 MCV 91.1 fl (80-96) 07/04/18 07:30 MCH 29.1 pg (25.7-33.7) 07/04/18 07:30 MCHC 32.0 g/dl (32.0-35.9) 07/04/18 07:30 RDW 15.1 % (11.9-15.9) 07/04/18 07:30 Plt Count 239 K/MM3 (134-434) 07/04/18 07:30 MPV 8.1 fl (7.5-11.1) 07/04/18 07:30 PT with INR 29.20 SEC (9.7-13.0) H 07/04/18 08:00 INR 2.45 (0.83-1.09) H 07/04/18 08:00 Sodium 142 mmol/L (136-145) 07/04/18 07:30 Potassium 3.7 mmol/L (3.5-5.1) 07/04/18 07:30 Chloride 106 mmol/L (98-107) 07/04/18 07:30 Carbon Dioxide 31 mmol/L (21-32) 07/04/18 07:30 Anion Gap 6 MMOL/L (8-16) L 07/04/18 07:30 BUN 15 mg/dL (7-18) 07/04/18 07:30 Creatinine 0.9 mg/dL (0.55-1.3) 07/04/18 07:30 Creat Clearance w eGFR > 60 (>60) 07/04/18 07:30 Random Glucose 120 mg/dL (74-106) H 07/04/18 07:30 Calcium 8.6 mg/dL (8.5-10.1) 07/04/18 07:30 Total Bilirubin 0.4 mg/dL (0.2-1) 07/04/18 07:30 AST 25 U/L (15-37) 07/04/18 07:30 ALT 24 U/L (13-61) 07/04/18 07:30 Alkaline Phosphatase 70 U/L (45-117) 07/04/18 07:30 Total Protein 7.7 g/dl (6.4-8.2) 07/04/18 07:30 Albumin 3.7 g/dl (3.4-5.0) 07/04/18 07:30 Urine Color Yellow 07/03/18 15:39 Urine Appearance Clear 07/03/18 15:39 Urine pH 5.0 (5.0-8.0) 07/03/18 15:39 Ur Specific [place] 1.030 (1.010-1.035) 07/03/18 15:39 Urine Protein 1+ (NEGATIVE) H 07/03/18 15:39 Urine Glucose (UA) Negative (NEGATIVE) 07/03/18 15:39 Urine Ketones Negative (NEGATIVE) 07/03/18 15:39 Urine Blood Negative (NEGATIVE) 07/03/18 15:39 Urine Nitrite Negative (NEGATIVE) 07/03/18 15:39 Urine Bilirubin Negative (<2.0 mg/dL) 07/03/18 15:39 Urine Urobilinogen 2.0 mg/dL (0.2-1.0) 07/03/18 15:39 Ur Leukocyte Esterase Negative (NEGATIVE) 07/03/18 15:39 Urine WBC (Auto) 1 /hpf (3-5) 07/03/18 15:39 Urine RBC (Auto) 1 /hpf (0-3) 07/03/18 15:39 Ur Epithelial Cells Rare /HPF (FEW) 07/03/18 15:39 Urine Mucus Many 07/03/18 15:39 lab noted Assessment: 07/04/18 11:51 withdrawal sx Plan: continue detox
[2018-07-04 10:29] LABS: HEMOGLOBIN 13.1 GM/dL (11.7-16.9); MCH 29.1 pg (25.7-33.7); MEAN CELL VOLUME 91.1 fl (80-96); MEAN PLT VOLUME 8.1 fl (7.5-11.1); PLATELET COUNT 239 K/MM3 (134-434); RDW 15.1 % (11.9-15.9); WHITE BLOOD COUNT 3.2 K/mm3 (4.0-10.0)
[2018-07-04 10:57] LABS: ALBUMIN 3.7 g/dl (3.4-5.0); ALK PHOS 70 U/L (45-117); ANION GAP 6 MMOL/L (8-16); BILIRUBIN,TOTAL 0.4 mg/dL (0.2-1); BLOOD UREA NITROGEN 15 mg/dL (7-18); CALCIUM 8.6 mg/dL (8.5-10.1); CHLORIDE 106 mmol/L (98-107); CO2 31 mmol/L (21-32); CREATININE 0.9 mg/dL (0.55-1.3); GLUCOSE,RANDOM 120 mg/dL (74-106); POTASSIUM 3.7 mmol/L (3.5-5.1); SGOT/AST 25 U/L (15-37); SGPT/ALT 24 U/L (13-61); SODIUM 142 mmol/L (136-145); TOT PROT 7.7 g/dl (6.4-8.2)
[2018-07-04 11:02] LABS: INR 2.45 (0.83-1.09); PROTHROMBIN TIME (PATIENT) 29.2 SEC (9.7-13.0)
[2018-07-04] MEDS ORDERED: COLLOIDAL OATMEAL 1 BAR EACH TP PRN (11:50)
[2018-07-04 13:20] VITALS: BP 141/85; PULSE 104; TEMP 97.7
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
--- NOTE | 2018-07-04 15:50 | DS ---
[facility] Detox Discharge Summary Admission Date: 07/03/18 Discharge Date: 07/04/18 - History Present History: Alcohol Dependence, Opioid Dependence Additional Comments: 47 years old male admitted on 07/03/18 for alcohol and opiate withdrawal stabilization insists to leave the detox unit that "has things to do" patient is alert no acute distress denies suicidal no homocidal no self destructive behavior Pertinent Past History: patient agrees to follow up with Dr. Alvarez discuss weight loss related benefits toward hypertension - Physical Exam Results Vital Signs: Vital Signs Temperature 97.7 F 07/04/18 13:19 Pulse Rate 104 H 07/04/18 13:19 Respiratory Rate 20 07/04/18 13:19 Blood Pressure 141/85 07/04/18 13:19 O2 Sat by Pulse Oximetry (%) Pertinent Admission Physical Exam Findings: alcohol and opiate withdrawal sx Laboratory Last Values WBC 3.2 K/mm3 (4.0-10.0) L 07/04/18 07:30 RBC 4.50 M/mm3 (4.00-5.60) 07/04/18 07:30 Hgb 13.1 GM/dL (11.7-16.9) 07/04/18 07:30 Hct 41.0 % (35.4-49) 07/04/18 07:30 MCV 91.1 fl (80-96) 07/04/18 07:30 MCH 29.1 pg (25.7-33.7) 07/04/18 07:30 MCHC 32.0 g/dl (32.0-35.9) 07/04/18 07:30 RDW 15.1 % (11.9-15.9) 07/04/18 07:30 Plt Count 239 K/MM3 (134-434) 07/04/18 07:30 MPV 8.1 fl (7.5-11.1) 07/04/18 07:30 PT with INR 29.20 SEC (9.7-13.0) H 07/04/18 08:00 INR 2.45 (0.83-1.09) H 07/04/18 08:00 Sodium 142 mmol/L (136-145) 07/04/18 07:30 Potassium 3.7 mmol/L (3.5-5.1) 07/04/18 07:30 Chloride 106 mmol/L (98-107) 07/04/18 07:30 Carbon Dioxide 31 mmol/L (21-32) 07/04/18 07:30 Anion Gap 6 MMOL/L (8-16) L 07/04/18 07:30 BUN 15 mg/dL (7-18) 07/04/18 07:30 Creatinine 0.9 mg/dL (0.55-1.3) 07/04/18 07:30 Creat Clearance w eGFR > 60 (>60) 07/04/18 07:30 Random Glucose 120 mg/dL (74-106) H 07/04/18 07:30 Calcium 8.6 mg/dL (8.5-10.1) 07/04/18 07:30 Total Bilirubin 0.4 mg/dL (0.2-1) 07/04/18 07:30 AST 25 U/L (15-37) 07/04/18 07:30 ALT 24 U/L (13-61) 07/04/18 07:30 Alkaline Phosphatase 70 U/L (45-117) 07/04/18 07:30 Total Protein 7.7 g/dl (6.4-8.2) 07/04/18 07:30 Albumin 3.7 g/dl (3.4-5.0) 07/04/18 07:30 Urine Color Yellow 07/03/18 15:39 Urine Appearance Clear 07/03/18 15:39 Urine pH 5.0 (5.0-8.0) 07/03/18 15:39 Ur Specific [place] 1.030 (1.010-1.035) 07/03/18 15:39 Urine Protein 1+ (NEGATIVE) H 07/03/18 15:39 Urine Glucose (UA) Negative (NEGATIVE) 07/03/18 15:39 Urine Ketones Negative (NEGATIVE) 07/03/18 15:39 Urine Blood Negative (NEGATIVE) 07/03/18 15:39 Urine Nitrite Negative (NEGATIVE) 07/03/18 15:39 Urine Bilirubin Negative (<2.0 mg/dL) 07/03/18 15:39 Urine Urobilinogen 2.0 mg/dL (0.2-1.0) 07/03/18 15:39 Ur Leukocyte Esterase Negative (NEGATIVE) 07/03/18 15:39 Urine WBC (Auto) 1 /hpf (3-5) 07/03/18 15:39 Urine RBC (Auto) 1 /hpf (0-3) 07/03/18 15:39 Ur Epithelial Cells Rare /HPF (FEW) 07/03/18 15:39 Urine Mucus Many 07/03/18 15:39 lab noted patient verbally described that Dr. Alvarez is primary care provider for coumadin monitoring - Treatment Hospital Course: Detox Protocol Followed, Responded well Patient has Accepted a Rehab Referral to: Dr. Alvarez - Medication Discharge Medications: Ambulatory Orders Warfarin Sodium [Coumadin] 8 mg PO HS 10/08/17 Clonidine HCl [Catapres] 0.1 mg PO TID 10/09/17 Gabapentin 800 mg PO BID #60 tablet 05/02/18 Quetiapine Fumarate [Seroquel] 100 mg PO HS #30 tablet 05/02/18 - Diagnosis (1) Alcohol dependence with uncomplicated withdrawal Current Visit: Yes Status: Acute (2) Nicotine dependence Current Visit: Yes Status: Acute Qualifiers: Nicotine product type: cigarettes Substance use status: in withdrawal Qualified Code(s): F17.213 - Nicotine dependence, cigarettes, with withdrawal (3) Opioid dependence with withdrawal Current Visit: Yes Status: Acute (4) DVT (deep venous thrombosis) Current Visit: Yes Status: Chronic Qualifiers: DVT location: lower extremity Affected thrombotic vein of extremity: unspecified vein of extremity Chronicity: unspecified Laterality: unspecified laterality Qualified Code(s): I82.409 - Acute embolism and thrombosis of unspecified deep veins of unspecified lower extremity (5) GERD (gastroesophageal reflux disease) Current Visit: Yes Status: Chronic Qualifiers: Esophagitis presence: without esophagitis Qualified Code(s): K21.9 - Gastro -esophageal reflux disease without esophagitis (6) HTN (hypertension) Current Visit: Yes Status: Chronic Qualifiers: Hypertension type: essential hypertension (7) Obesity Current Visit: Yes Status: Chronic - AMA Did Patient Leave Against Medical Advice: Yes
[2018-07-05] MEDS ORDERED: METHADONE HCL 5 MG TABLET (FOR DETOX USE ONLY) PO SCH (10:00)
[2018-07-05] MEDS ORDERED: diazePAM 5 MG TABLET PO SCH (10:00)
[2018-07-07] MEDS ORDERED: diazePAM 5 MG TABLET PO SCH (10:00)
[2018-07-07] MEDS ORDERED: METHADONE HCL 10 MG TABLET (FOR DETOX USE ONLY) PO SCH (10:00)
[2018-07-08] MEDS ORDERED: METHADONE HCL 5 MG TABLET (FOR DETOX USE ONLY) PO SCH (06:00)
== END 2018-07-04 15:03 | disposition left against medical advice (07) | DRG 894 ==
LOC: YASAS 11:03 → Y3N 14:07
PROC: HZ2ZZZZ Detoxification Services for Substance Abuse Treatment (ICD-10-PCS; principal; 2018-07-03)
DX: F11.23 Opioid dependence with withdrawal (principal); F13.20 Sedative, hypnotic or anxiolytic dependence, uncomplicated; F10.230 Alcohol dependence with withdrawal, uncomplicated; F14.10 Cocaine abuse, uncomplicated; F12.10 Cannabis abuse, uncomplicated; F17.213 Nicotine dependence, cigarettes, with withdrawal; F31.9 Bipolar disorder, unspecified; I10 Essential (primary) hypertension; K21.9 Gastro-esophageal reflux disease without esophagitis; E66.9 Obesity, unspecified; Z68.39 Body mass index [BMI] 39.0-39.9, adult; Z86.718 Personal history of other venous thrombosis and embolism; Z86.711 Personal history of pulmonary embolism; Z79.01 Long term (current) use of anticoagulants; Z86.69 Personal history of other diseases of the nervous system and sense organs; Z95.828 Presence of other vascular implants and grafts
CPT/HCPCS: 36415; 80053; 81003; 81015; 85027; 85610; J0735